=== PATIENT | female | born 1940 | race Caucasian/White ===

== ENCOUNTER 2017-04-30 13:49 | Emergency (ER) | payer MEDICARE, OTHER ==
[~2017-04-30] VITALS: Ht 157.5 cm; Wt 69.7 kg
[~2017-04-30 13:49] MED LIST: CARV12.579 PO; CHOL200035 PO; CIPR500T4 PO; CLOP75TA27 PO; CYAN100061 PO; EZET1TAB10 PO; OXYB5TAB22 PO; SERT50TA6 PO; SPIR25TA PO
[2017-04-30 14:04] VITALS: Ht 157.5 cm; Wt 69.7 kg
== END 2017-04-30 16:30 | disposition left against medical advice (07) ==
LOC: E/R 13:49 → MERGE 13:49 → E/R 16:30
DX: Z53.21 Procedure and treatment not carried out due to patient leaving prior to being seen by health care provider (principal)

== ENCOUNTER 2017-10-16 15:03 | Inpatient (IN) | END 2017-10-18 18:13 | disposition home or self-care (01) | DRG 378 ==

== ENCOUNTER 2018-10-21 10:56 | Inpatient (IN) | payer BC, OTHER ==
[~2018-10-21] VITALS: Ht 154.9 cm; Wt 75.4 kg
[~2018-10-21 10:56] MED LIST changes: -CHOL200035 PO; -CIPR500T4 PO; -CLOP75TA27 PO; +DOCU-216 PO; +PANT40TA4 PO
[2018-10-21] MEDS ORDERED: SOD CHLORIDE 0.9% 0 ML IV ONE (12:34)
[2018-10-21] MEDS ORDERED: FER325 PO (13:39)
[2018-10-21] MEDS ORDERED: MIRA25TA PO (13:39)
[2018-10-21] MEDS ORDERED: MIRA50TA ORAL (13:41)
[2018-10-21] MEDS ORDERED: CLOP75TA28 ORAL (13:41)
--- NOTE | 2018-10-21 14:29 | ERD ---
ER Documentation Chief Complaint Chief Complaint chest pain since this morning. mild sob and feels chest tightness. no N/V HPI This is a 78-year-old female with a past medical history of hypertension, hyperlipidemia, coronary artery disease status post stenting and CABG, congestive heart failure, previous CVA, on Plavix, who is presenting with mild mid substernal nonradiating pressure-like chest pain and tightness with associated shortness of breath, dyspnea on exertion, lightheadedness/dizziness and a sensation that she might pass out. It started this morning. She does not endorse alleviating or exacerbating factors. The patient does report previous episodes of anemia requiring transfusion. She is told that she had a polyp on her most recent endoscopy. The patient denies feeling sick recently. The patient denies fever or chills. The patient has had no headache or vision changes. The patient does not endorse neck or back pain. The patient denies nausea or vomiting. The patient denies abdominal pain. The patient denies changes to bowel movements or urination. The patient has had no focal deficits. The patient has had no weakness or numbness or tingling to the face or extremities. ROS All systems reviewed and are negative except as per history of present illness. Medications Home Meds Reported Medications Mirabegron (Myrbetriq) 50 Mg Tab.er.24h, 1 TAB ORAL DAILY 10/21/18 Clopidogrel Bisulfate (Clopidogrel) 75 Mg Tablet, 1 TAB ORAL DAILY 10/21/18 Ferrous Sulfate* (Ferrous Sulfate*) 325 Mg Tabec, 325 MG PO DAILY, TAB 10/21/18 Spironolactone* (Aldactone*) 25 Mg Tablet, 25 MG PO DAILY, TAB 01/21/15 Cyanocobalamin* (Vitamin B-12* SL) 1,000 Mcg Tab.subl, 1000 MG PO DAILY 12/03/12 Ezetimibe-Simvastatin (Vytorin) 1 Tab Tablet, 1 TAB PO HS 12/03/12 Sertraline Hcl* (Sertraline Hcl*) 50 Mg Tablet, 50 TAB PO DAILY 12/03/12 Carvedilol* (Carvedilol*) 12.5 Mg Tablet, 12.5 TAB PO BID 12/03/12 Discontinued Reported Medications Mirabegron (Mybetriq) 25 Mg Tab.er.24h, 50 MG PO DAILY, TAB 10/21/18 Oxybutynin Chloride* (Ditropan* XL) 5 Mg Tabsr, 5 MG PO DAILY, TAB.SA 01/21/15 Discontinued Scripts Pantoprazole* (Pantoprazole*) 40 Mg Tablet.dr, 40 MG PO BID@18 for 30 Days, #30 2 Refills Prov:MARILEE LAWSON MD 10/18/17 Docusate Sodium (Dok) 100 Mg Capsule, 100 MG PO BID PRN for CONSTIPATION for 1 Day, CAP otc Prov:MARILEE LAWSON MD 10/18/17 Allergies Allergies: Coded Allergies: sulfamethoxazole (Verified Allergy, Intermediate, RASH/ ITCHING, 10/21/18) trimethoprim (Verified Allergy, Intermediate, RASH/ ITCHING, 10/21/18) pseudoephedrine (Verified Allergy, Mild, 10/21/18) PMhx/Soc History of Surgery: Yes (triple bypass and 3 stents 7 yrs ago ) Anesthesia Reaction: No Hx Neurological Disorder: Yes (mini stroke 7 yrs ago ) Hx Respiratory Disorders: No Hx Cardiac Disorders: Yes (CABG) Hx Psychiatric Problems: No Hx Miscellaneous Medical Probl: No Hx Alcohol Use: No Hx Substance Use: No Hx Tobacco Use: No Smoking Status: Never smoker FmHx Family History: No diabetes Physical Exam Vitals Vital Signs Date Temp Pulse Resp B/P (MAP) Pulse Ox O2 O2 Flow FiO2 Time Delivery Rate 10/21/18 97.5 61 21 121/52 100 Nasal 2.0 12:47 (75) Cannula 10/21/18 Nasal 2 11:33 Cannula 10/21/18 98.0 66 18 126/58 98 11:09 (80) Physical Exam Const: No apparent distress, well-developed, well-nourished Head: Normocephalic, Atraumatic Eyes: Conjunctival pallor. Extraocular movements intact. Pupils equal, round and reactive to light ENT: Normal External Ears, Nose and Mouth. Neck: Full range of motion. No meningismus. Resp: Clear to auscultation bilaterally, No wheezes, rales or rhonchi Cardio: Regular rate and rhythm. No murmurs, rubs or gallops Abd: Soft, non tender, non distended. Normal bowel sounds Skin: No petechiae or rashes. Pale Back: No midline tenderness. No CVA tenderness Ext: No cyanosis, or edema Neur: Awake and alert, oriented 4. Cranial nerves intact. No facial droop. Normal strength, sensation and coordination. Psych: Normal Mood and Affect Result Diagram: 10/21/18 1123 10/21/18 1123 Results 24 hrs Laboratory Tests Test 10/21/18 11:23 White Blood Count 7.3 10^3/ul Red Blood Count 2.02 10^6/ul Hemoglobin 6.4 g/dl Hematocrit 20.9 % Mean Corpuscular Volume 103.5 fl Mean Corpuscular Hemoglobin 31.7 pg Mean Corpuscular Hemoglobin Concent 30.6 g/dl Red Cell Distribution Width 17.6 % Platelet Count 200 10^3/UL Mean Platelet Volume 9.9 fl Immature Granulocytes % 0.400 % Neutrophils % 55.1 % Segmented Neutrophils % (Manual) 51 % Band Neutrophils % (Manual) 3 % Lymphocytes % 31.3 % Lymphocytes % (Manual) 37 % Monocytes % 8.4 % Monocytes % (Manual) 2 % Eosinophils % 4.0 % Eosinophils % (Manual) 4 % Basophils % 0.8 % Basophils % (Manual) 2 % Myelocytes % (Manual) 1 % Nucleated Red Blood Cells % 0.5 /100WBC Immature Granulocytes # 0.030 10^3/ul Neutrophils # 4.0 10^3/ul Neutrophils # (Manual) 3.7 10^3/ul Band Neutrophils # 0.2 10^3/ul Lymphocytes (Manual) 2.7 10^3/ul Lymphocytes # 2.3 10^3/ul Monocytes # 0.6 10^3/ul Monocytes # (Manual) 0.1 10^3/ul Eosinophils # 0.3 10^3/ul Basophils # 0.1 10^3/ul Basophils # (Manual) 0.1 10^3/ul Myelocytes # 0.0 10^3/ul Nucleated Red Blood Cells # 0.0 10^3/ul Pathologist Review (Hematology) YES Platelet Estimate NORMAL Polychromasia 1+ Poikilocytosis 1+ Anisocytosis 1+ Ovalocytes 1+ Prothrombin Time 13.7 Sec Prothrombin Time Ratio 1.1 INR International Normalized Ratio 1.04 Sodium Level 141 mmol/L Potassium Level 4.1 mmol/L Chloride Level 111 mmol/L Carbon Dioxide Level 23 mmol/L Anion Gap 7 Blood Urea Nitrogen 18 mg/dl Creatinine 0.85 mg/dl Est Glomerular Filtrat Rate mL/min mL/min Glucose Level 104 mg/dl Calcium Level 8.1 mg/dl Troponin I < 0.012 ng/ml B-Type Natriuretic Peptide 707 PG/ML Current Medications Medications Dose Sig/Mickey Start Time Status Last (Trade) Ordered Route PRN Stop Time Admin Dose Reason Admin Sodium 0 ml @ 0 Q0M ONCE 10/21/18 DC 10/21/18 Chloride mls/hr IV 12:34 10/21/18 13:55 12:35 Procedures/MDM MDM The patient's presentation warrants further investigation. Previous medical records, if available, were reviewed. LABS The patient's laboratory testing was obtained and reviewed. No emergent treatment was required unless described below. CBC: No E/o systemic infection or thrombocytopenia. Macrocytic anemia requiring transfusion. Chemistry: No E/o severe acidosis or alkalosis or renal failure or diabetic ketoacidosis PT/INR: No E/o significant coagulopathy Troponin: No E/o acute ischemia BNP: No E/o heart failure EKG EKG read by me: Rate/Rhythm: Irregularly irregular rhythm, regular rate at 61 bpm, indicating atrial fibrillation Intervals: Normal QRS and QTc. No obvious P waves. [place]: Normal Impression: No evidence of acute ischemia. Atrial fibrillation IMAGING Imaging and Radiology interpretation reviewed. CXR FINDINGS: The heart is within normal limits. The thoracic aorta is calcified. The patient is status post sternotomy. The lungs are clear. There is no pleural effusion or pneumothorax. IMPRESSION: No acute disease. Calcified aorta consistent with atherosclerotic disease. Electronically viewed and signed by .Alberto Hernandez MD, MD on 10/21/2018 11:39 TREATMENT/DISPOSITION The patient presents after a near-syncopal event. The patient's symptoms are likely related to symptomatic anemia. The risks and benefits of blood transfusion were discussed with the patient and the patient consented. 1 unit of packed red blood cells was provided to the patient. The patient does have congestive heart failure. Why do not suspect an acute exacerbation, I did give the patient a dose of Lasix in the emergency department as he is about to be bolused with fluid from the blood transfusion. The patient is not dizzy. I have decreased suspicion for vertigo. The patient has no signs of emergent or symptomatic anemia. The patient does not have any emergent electrolyte or metabolic emergencies. I have decrease suspicion for a thyroid disorder. The patient is not toxic appearing. I have decreased suspicion for an infectious etiology of symptoms. The patient's EKG and troponin are reassuring. I have low suspicion for acute coronary syndrome. I do not see evidence of any emergent cardiac arrhythmia, which includes but is not limited to heart block, Brugada syndrome or WPW. The patient has no heart murmurs or rales. There is no evidence of cardiomegaly on exam or chest xray. I have low suspicion for hypertrophic cardiomyopathy. The patient does not endorse any chest or pleuritic pain. The history is negative for bleeding or clotting disorders. The patient has not been involved in any recent prolonged trips or surgeries or hospitalizations. The patient has no calf tenderness or swelling. I have decreased suspicion for PE as the etiology of symptoms. The patient has no focal deficits. The neurologic exam is reassuring. I have decreased suspicion for cerebral ischemia. There was no trauma or injury. There is no personal or family history of cerebral aneurysm. I have decreased suspicion for SAH or other ICH. I have low suspicion for temporal arteritis, cavernous venous thrombosis, subdural hematoma, epidural hematoma, meningitis. ADMISSION At this time, I feel that the patient requires admission for further evaluation and management. The patient will be admitted to panel in accordance with the patient's insurance. The patient was accepted by Dr. Navarro at 1415PM on 10/21/2018. Disclaimer: Inadvertent spelling and grammatical errors are likely due to EHR/dictation software use and do not reflect on the overall quality of patient care. Note that the electronic time recorded on this note does not necessarily reflect the actual time of the patient encounter. Departure Diagnosis: Primary Impression: Symptomatic anemia Additional Impressions: Macrocytic anemia Near syncope Chronic CHF Heart failure type: unspecified Qualified Codes: I50.9 - Heart failure, unspecified Elevated brain natriuretic peptide (BNP) level Condition: Serious MARCOS FLOWERS MD October 21, 2018 14:28
[2018-10-21] MEDS ORDERED: ONDANSETRON 4 MG INJ IV PRN ×2 (14:30→15:30)
[2018-10-21] MEDS ORDERED: ACETAMINOPHEN 325 MG TAB PO PRN ×2 (14:30→15:30)
[2018-10-21] MEDS ORDERED: FUROSEMIDE 40 MG INJ IV ONE (14:30)
[2018-10-21] MEDS: D5W-0.45 NACL + KCL 20 MEQ 1,000 ML IV SCH (15:07)
[2018-10-21] MEDS ORDERED: NACL 0.9% 3 ML SYG IV SCH (15:30)
[2018-10-21] MEDS ORDERED: morphine 2 MG INJ IV PRN (15:30)
[2018-10-21] MEDS ORDERED: HYDROCODONE/APAP (5/325) TAB PO PRN (15:30)
--- NOTE | 2018-10-21 15:56 | HP ---
Date/Time of Note Date/Time of Note DATE: 10/21/18 TIME: 15:41 Assessment/Plan VTE Prophylaxis SCD applied (from Nsg): Yes Pharmacological prophylaxis: NA/contraindicated Pharm contraindication: bleeding Lines/Catheters IV Catheter Type (from Nrsg): Saline Lock Assessment/Plan Hospital Course 1. Acute blood loss anemia secondary to GI bleed Patient is symptomatic with palpitations and lightheadedness Transfuse 2 units of packed red blood cells Patient denies zay blood per rectum but does report dark stool although is on iron Recent EGD showed gastritis, colonoscopy showed moderate external hemorrhoids and diverticulosis, video capsule study done as an outpatient was reportedly negative Pathology from EGD showed no H. pylori Reconsult Dr. Barron who saw patient during last hospitalization 2. CAD Hold home ASA and Plavix 3. Hx of CVA Hold Rx PPx: SCD's Result Diagram: 10/21/18 1123 10/21/18 1123 Results 24hrs Laboratory Tests Test 10/21/18 11:23 White Blood Count 7.3 Red Blood Count 2.02 #L Hemoglobin 6.4 #*L Hematocrit 20.9 #L Mean Corpuscular Volume 103.5 H Mean Corpuscular Hemoglobin 31.7 Mean Corpuscular Hemoglobin Concent 30.6 L Red Cell Distribution Width 17.6 H Platelet Count 200 Mean Platelet Volume 9.9 Immature Granulocytes % 0.400 Neutrophils % 55.1 Segmented Neutrophils % (Manual) 51 Band Neutrophils % (Manual) 3 Lymphocytes % 31.3 Lymphocytes % (Manual) 37 Monocytes % 8.4 Monocytes % (Manual) 2 Eosinophils % 4.0 Eosinophils % (Manual) 4 Basophils % 0.8 Basophils % (Manual) 2 Myelocytes % (Manual) 1 H Nucleated Red Blood Cells % 0.5 H Immature Granulocytes # 0.030 Neutrophils # 4.0 Neutrophils # (Manual) 3.7 Band Neutrophils # 0.2 Lymphocytes (Manual) 2.7 Lymphocytes # 2.3 Monocytes # 0.6 Monocytes # (Manual) 0.1 L Eosinophils # 0.3 Basophils # 0.1 Basophils # (Manual) 0.1 H Myelocytes # 0.0 Nucleated Red Blood Cells # 0.0 Pathologist Review (Hematology) YES Platelet Estimate NORMAL Polychromasia 1+ Poikilocytosis 1+ Anisocytosis 1+ Ovalocytes 1+ Prothrombin Time 13.7 Prothrombin Time Ratio 1.1 INR International Normalized Ratio 1.04 Sodium Level 141 Potassium Level 4.1 Chloride Level 111 H Carbon Dioxide Level 23 Anion Gap 7 Blood Urea Nitrogen 18 Creatinine 0.85 Est Glomerular Filtrat Rate mL/min Glucose Level 104 Calcium Level 8.1 L Troponin I < 0.012 B-Type Natriuretic Peptide 707 H HPI/ROS Admit Date/Time Admit Date/Time October 21, 2018 Hx of Present Illness Patient is a 78-year-old female with a history of CAD, depression, chronic CVA per imaging as well as GI bleed with recent hospitalization for anemia. During recent hospitalization patient was transfused, patient was found to have gastritis as well as hemorrhoids and diverticulosis. Patient reports that since discharge she had a video capsule study that was negative. Patient presents now with palpitations and lightheadedness for the past several days. In the ER patient was noted to be anemic with hemoglobin of 6.4. Patient does report dark stools but is on iron therapy, patient denies any zay blood per rectum. Patient has no other complaints this time. ROS Constitutional: no complaints, improved Eyes: no complaints ENT: no complaints Respiratory: no complaints Cardiovascular: lightheadedness, palpitations Gastrointestinal: no complaints Genitourinary: no complaints Musculoskeletal: no complaints Skin: no complaints Neurologic: no complaints Endocrine: no complaints Lymphatic: no complaints Psychological: no complaints, nl mood/affect Immunologic: no complaints PMH/Family/Social Past Medical History As per HPI Medications Current Medications Potassium Chloride/Dextrose/ Sod Cl 1,000 ml @ 100 mls/hr Q10H IV ; Start 10/21/18 at 15:07 IV Flush (NS 3 ml) 3 ml PER PROTOCOL IV ; Start 10/21/18 at 15:30 Ondansetron HCl (Zofran Inj) 4 mg Q6H PRN IV NAUSEA/VOMITING; Start 10/21/18 at 15:30 Acetaminophen (Tylenol Tab) 650 mg Q6H PRN PO .PAIN 1-3 OR TEMP; Start 10/21/18 at 15:30 Acetaminophen/ Hydrocodone Bitart ([place] (5/325)) 1 tab Q6H PRN PO .MOD PAIN 4- 6; Start 10/21/18 at 15:30 Morphine Sulfate (morphine) 2 mg Q4H PRN IV .SEVERE PAIN 7-10; Start 10/21/18 at 15:30 Pantoprazole (Protonix Iv) 40 mg DAILY@06 IV ; Start 10/22/18 at 06:00 Sertraline HCl (Zoloft) 50 mg DAILY PO ; Start 10/22/18 at 09:00 Spironolactone (Aldactone) 25 mg DAILY PO ; Start 10/22/18 at 09:00 Coded Allergies: sulfamethoxazole (Verified Allergy, Intermediate, RASH/ ITCHING, 10/21/18) trimethoprim (Verified Allergy, Intermediate, RASH/ ITCHING, 10/21/18) pseudoephedrine (Verified Allergy, Mild, 10/21/18) Past Surgical History Past Surgical Hx: coronary bypass surgery Family History Significant Family History: no pertinent family hx Social History Alcohol Use: rarely Smoking Status: Never smoker Drug Use: none Exam/Review of Systems Vital Signs Vitals Vital Signs Date Temp Pulse Resp B/P (MAP) Pulse Ox O2 O2 Flow FiO2 Time Delivery Rate 10/21/18 97.5 61 21 121/52 100 Nasal 2.0 12:47 (75) Cannula Exam Constitutional: alert, oriented Respiratory: clear to auscultation Cardiovascular: regular rate and rhythm Gastrointestinal: soft, non-tender; No distended Musculoskeletal: nl extremities to inspection CHELSEA PLUMMER October 21, 2018 15:51
[2018-10-21 19:49] VITALS: BP 180/73; PULSE 55; RESP 18
[2018-10-21 20:00] VITALS: PULSE 62
[2018-10-21 20:05] VITALS: Ht 154.9 cm; Wt 75.4 kg
[2018-10-21 21:34] VITALS: BP 152/68; PULSE 56
[2018-10-22] VITALS (8 sets, daily range): BP systolic 112–149; BP diastolic 53–65; PULSE 55–96; RESP 16–18
[2018-10-22] MEDS: D5W-0.45 NACL + KCL 20 MEQ 1,000 ML IV SCH ×2 (01:07→08:49)
[2018-10-22] MEDS ORDERED: PANTOPRAZOLE 40 MG INJ IV SCH (06:00)
[2018-10-22] MEDS ORDERED: SERTRALINE 50 MG TAB PO SCH (09:00)
[2018-10-22] MEDS ORDERED: SPIRONOLACTONE 25 MG TAB PO SCH (09:00)
[2018-10-22] MEDS ORDERED: SOD FERRIC GLUC COMPLX 125 MG in SOD CHLORIDE 0.9% 100 ML IVPB SCH (13:00)
--- NOTE | 2018-10-22 14:20 | PDOCDIS ---
Discharge Instructions CONDITION [id number] Patient Condition: [id number] Good HOME CARE INSTRUCTIONS: [id number] Diet Instructions: [id number] Modified Fat ACTIVITY: [id number] Activity Restrictions: [id number] No Restrictions FOLLOW UP/APPOINTMENTS Follow-up Plan Follow-up with PCP and mobile application engineer in 1 to 2 weeks CHELSEA PLUMMER October 22, 2018 14:20
--- NOTE | 2018-10-22 16:16 | DS ---
Date/Time of Note Date/Time of Note DATE: 10/22/18 TIME: 16:07 Discharge Summary Admission/Discharge Info Admit Date/Time October 21, 2018 at 14:19 Discharge Date/Time October 22, 2018 at 15:33 Discharge Diagnosis 1. Acute blood loss anemia secondary to GI bleed Patient is symptomatic with palpitations and lightheadedness Status post 2 units of packed red blood cells with improved hemoglobin Patient denies zay blood per rectum but does report dark stool although is on iron Recent EGD showed gastritis, colonoscopy showed moderate external hemorrhoids and diverticulosis, video capsule study done as an outpatient was reportedly negative Pathology from EGD showed no H. pylori Follow-up with GI as outpatient Have discussed risks and benefits of continuing Plavix, considering history of strokes and coronary disease benefits appear to outweigh risk 2. CAD Hold home Plavix and statin 3. Hx of CVA Continue Plavix and statin Patient Condition: Good Hospital Course Patient is a 78-year-old female with a history of CAD, depression, chronic CVA per imaging as well as GI bleed with recent hospitalization for anemia. During recent hospitalization patient was transfused, patient had an EGD and colonoscopy and was found to have gastritis as well as hemorrhoids and diverticulosis. Patient had recent outpatient video capsule study that was negative. Patient presented with palpitations and lightheadedness, in the ER patient was noted to be anemic with hemoglobin of 6.4. Patient does report dark stools but has been on iron therapy, patient denied any zay blood per rectum. Etiology of anemia is likely secondary to chronic bleed from hemorrhoids, there was no indication for further GI work-up considering recent endoscopies and video capsule study. Patient's palpitations and lightheadedness did resolve after receiving 2 units of packed red blood cells and patient was stable for DC. Discussion was had in regards to continuing Plavix, considering patient's history of coronary disease and strokes it was decided that benefits of continuing Plavix outweigh risks. Patient is to follow-up with her diagrammer as an outpatient, on the day of discharge patient's vitals, labs and physical exam are stable. Home Meds Reported Medications Mirabegron (Myrbetriq) 50 Mg Tab.er.24h, 1 TAB ORAL DAILY 10/21/18 Clopidogrel Bisulfate (Clopidogrel) 75 Mg Tablet, 1 TAB ORAL DAILY 10/21/18 Ferrous Sulfate* (Ferrous Sulfate*) 325 Mg Tabec, 325 MG PO DAILY, TAB 10/21/18 Spironolactone* (Aldactone*) 25 Mg Tablet, 25 MG PO DAILY, TAB 01/21/15 Cyanocobalamin* (Vitamin B-12* SL) 1,000 Mcg Tab.subl, 1000 MG PO DAILY 12/03/12 Ezetimibe-Simvastatin (Vytorin) 1 Tab Tablet, 1 TAB PO HS 12/03/12 Sertraline Hcl* (Sertraline Hcl*) 50 Mg Tablet, 50 TAB PO DAILY 12/03/12 Carvedilol* (Carvedilol*) 12.5 Mg Tablet, 12.5 TAB PO BID 12/03/12 Discontinued Reported Medications Mirabegron (Mybetriq) 25 Mg Tab.er.24h, 50 MG PO DAILY, TAB 10/21/18 Oxybutynin Chloride* (Ditropan* XL) 5 Mg Tabsr, 5 MG PO DAILY, TAB.SA 01/21/15 Discontinued Scripts Pantoprazole* (Pantoprazole*) 40 Mg Tablet.dr, 40 MG PO BID@, for 30 Days, #30 2 Refills Prov:MARILEE LAWSON MD 10/18/17 Docusate Sodium (Dok) 100 Mg Capsule, 100 MG PO BID PRN for CONSTIPATION for 1 Day, CAP otc Prov:MARILEE LAWSON MD 10/18/17 Follow-up Plan Follow-up with PCP and diagrammer in 1 to 2 weeks Primary Care Provider Not On Staff Doctor Time spent on discharge: > 30 minutes CHELSEA PLUMMER October 22, 2018 16:16
[2018-10-23] MEDS ORDERED: PANTOPRAZOLE (EC) 40 MG TAB PO SCH (06:00)
== END 2018-10-22 15:33 | disposition home or self-care (01) | DRG 812 ==
LOC: E/R 10:56 → MS3 14:19
PROVIDERS: ADMIT Internal Medicine; ATTEND Internal Medicine
PROC: 30233N1 Transfusion of Nonautologous Red Blood Cells into Peripheral Vein, Percutaneous Approach (ICD-10-PCS; principal; 2018-10-21)
DX: D62 Acute posthemorrhagic anemia (principal); R07.9 Chest pain, unspecified; Z95.1 Presence of aortocoronary bypass graft; Z86.73 Personal history of transient ischemic attack (TIA), and cerebral infarction without residual deficits; Z79.02 Long term (current) use of antithrombotics/antiplatelets; Z95.5 Presence of coronary angioplasty implant and graft; K29.70 Gastritis, unspecified, without bleeding; R19.5 Other fecal abnormalities; I50.9 Heart failure, unspecified
CPT/HCPCS: 36415; 36430; 71045; 80048; 82550; 82553; 83735; 83880; 84100; 84484; 85025; 85610; 86850; 86900; 86901; 86920; 93005; C9113; J1940; J2916; J3480; J7040; P9016

== ENCOUNTER 2018-12-15 21:16 | Inpatient (IN) | payer BC, OTHER ==
[~2018-12-15] VITALS: Ht 152.4 cm; Wt 73.6 kg
[~2018-12-15 21:16] MED LIST changes: +CLOP75TA28 ORAL; -DOCU-216 PO; +FER325 PO; +MIRA50TA ORAL; -OXYB5TAB22 PO; -PANT40TA4 PO
[2018-12-15 21:19] VITALS: Ht 152.4 cm; Wt 73.6 kg
[2018-12-15] MEDS ORDERED: METOCLOPRAMIDE 10 MG INJ IV STA (22:07)
[2018-12-15] MEDS ORDERED: SOD CHLORIDE 0.9% 1,000 ML IV STA (22:07)
[2018-12-15] MEDS ORDERED: SOD CHLORIDE 0.9% 0 ML IV ONE (23:42)
[2018-12-16] MEDS ORDERED: CEFTRIAXONE 1 GM/50 ML (PMX) 50 ML IVPB ONE (00:30)
[2018-12-16] MEDS ORDERED: ONDANSETRON 4 MG INJ IV PRN ×2 (00:30→06:30)
[2018-12-16] MEDS ORDERED: ACETAMINOPHEN 325 MG TAB PO PRN ×2 (00:30→06:30)
--- NOTE | 2018-12-16 00:34 | ERD ---
ER Documentation Chief Complaint Chief Complaint BIBRA from home, dizziness,vomiting an hour ago,constipation,denies pain HPI 78-year-old female with a history of CAD, CABG, stroke, and anemia presenting by ambulance from home complaining of dizziness that seems to be room spinning with associated nausea and vomiting that started about 1 hour ago. She states that she has been feeling generally weak. She thought that this was because of her medications. She went and saw her primary care doctor as well as her typist today. She had stopped her Plavix because she thought that this was causing her problems, but she was told to restart it which she did today at home. She denies any hematemesis, melena, hematochezia, abdominal pain, dysuria or hematuria. No chest pain or shortness of breath. No focal weakness or num bness. She states that she does have a history of vertigo and this is what her symptoms feel like. Her symptoms are worse with movement. She denies any associated headache. ROS All systems reviewed and are negative except as per history of present illness. Medications Home Meds Reported Medications Mirabegron (Myrbetriq) 50 Mg Tab.er.24h, 1 TAB ORAL DAILY 10/21/18 Clopidogrel Bisulfate (Clopidogrel) 75 Mg Tablet, 1 TAB ORAL DAILY 10/21/18 Ferrous Sulfate* (Ferrous Sulfate*) 325 Mg Tabec, 325 MG PO DAILY, TAB 10/21/18 Spironolactone* (Aldactone*) 25 Mg Tablet, 25 MG PO DAILY, TAB 01/21/15 Cyanocobalamin* (Vitamin B-12* SL) 1,000 Mcg Tab.subl, 1000 MG PO DAILY 12/03/12 Ezetimibe-Simvastatin (Vytorin) 1 Tab Tablet, 1 TAB PO HS 12/03/12 Sertraline Hcl* (Sertraline Hcl*) 50 Mg Tablet, 50 TAB PO DAILY 12/03/12 Carvedilol* (Carvedilol*) 12.5 Mg Tablet, 12.5 TAB PO BID 12/03/12 Allergies Allergies: Coded Allergies: sulfamethoxazole (Verified Allergy, Intermediate, RASH/ ITCHING, 10/21/18) trimethoprim (Verified Allergy, Intermediate, RASH/ ITCHING, 10/21/18) pseudoephedrine (Verified Allergy, Mild, 10/21/18) PMhx/Soc History of Surgery: Yes (BYPASS, STENT PLACEMENT X 3) Anesthesia Reaction: No Hx Neurological Disorder: No Hx Respiratory Disorders: No Hx Cardiac Disorders: Yes (HTN) Hx Psychiatric Problems: No Hx Miscellaneous Medical Probl: Yes (ARTHRITIS ) Hx Alcohol Use: No Hx Substance Use: No Hx Tobacco Use: No Smoking Status: Never smoker FmHx Family History: diabetes Physical Exam Vitals Vital Signs Date Temp Pulse Resp B/P (MAP) Pulse Ox O2 O2 Flow FiO2 Time Delivery Rate 12/15/18 97.2 67 20 133/54 97 Room Air 22:19 (80) 12/15/18 97.8 88 19 151/62 99 21:19 (91) Physical Exam Const: Appears to be in distress secondary to nausea, actively retching Head: Atraumatic Eyes: Normal Conjunctiva, PERRLA, EOMI. Horizontal nystagmus to the right. No vertical nystagmus ENT: Dry oral mucosa. Normal External Ears, Nose and Mouth. Neck: Full range of motion. No meningismus. Resp: Clear to auscultation bilaterally Cardio: Regular rate and rhythm, no murmurs 2+ distal pulses Abd: Soft, non tender, non distended. Normal bowel sounds Skin: No petechiae or rashes Back: No midline or flank tenderness Ext: No cyanosis, or edema Neur: Awake and alert, oriented x3, cranial nerves intact, strength and sensations intact in all 4 extremities. Psych: Normal Mood and Affect Result Diagram: 12/15/18213912/15/182139 Results 24 hrs Laboratory Tests Test 12/15/18 21:40 12/15/18 23:42 White Blood Count 11.9 10^3/ul Red Blood Count 2.46 10^6/ul Hemoglobin 6.7 g/dl Hematocrit 21.4 % Mean Corpuscular Volume 87.0 fl Mean Corpuscular Hemoglobin 27.2 pg Mean Corpuscular Hemoglobin Concent 31.3 g/dl Red Cell Distribution Width 15.3 % Platelet Count 363 10^3/UL Mean Platelet Volume 10.2 fl Immature Granulocytes % 0.400 % Neutrophils % 68.7 % Lymphocytes % 20.7 % Monocytes % 5.5 % Eosinophils % 3.7 % Basophils % 1.0 % Nucleated Red Blood Cells % 0.0 /100WBC Immature Granulocytes # 0.050 10^3/ul Neutrophils # 8.2 10^3/ul Lymphocytes # 2.5 10^3/ul Monocytes # 0.7 10^3/ul Eosinophils # 0.4 10^3/ul Basophils # 0.1 10^3/ul Nucleated Red Blood Cells # 0.0 10^3/ul Pathologist Review (Hematology) YES Prothrombin Time 13.4 Sec Prothrombin Time Ratio 1.0 INR International Normalized Ratio 1.01 Activated Partial Thromboplast Time 25.0 Sec Sodium Level 141 mmol/L Potassium Level 4.1 mmol/L Chloride Level 108 mmol/L Carbon Dioxide Level 22 mmol/L Anion Gap 11 Blood Urea Nitrogen 27 mg/dl Creatinine 1.16 mg/dl Est Glomerular Filtrat Rate mL/min mL/min Glucose Level 159 mg/dl Calcium Level 9.1 mg/dl Troponin I < 0.012 ng/ml Urine Color YELLOW Urine Clarity SLIGHTLY CLOUDY Urine pH 6.0 Urine Specific [place] 1.011 Urine Ketones NEGATIVE mg/dL Urine Nitrite POSITIVE mg/dL Urine Bilirubin NEGATIVE mg/dL Urine Urobilinogen NEGATIVE mg/dL Urine Leukocyte Esterase 2+ Marciano/ul Urine Microscopic RBC 2 /HPF Urine Microscopic WBC 12 /HPF Urine Amorphous Crystals FEW /HPF Urine Bacteria MANY /HPF Urine Hemoglobin 1+ mg/dL Urine Glucose NEGATIVE mg/dL Urine Total Protein NEGATIVE mg/dl Current Medications Medications Dose Sig/Mickey Start Time Status Last (Trade) Ordered Route PRN Stop Time Admin Dose Reason Admin Sodium 1,000 ml @ Q1H STAT 12/15/18 DC 12/15/18 Chloride 1,000 mls/hr IV 22:07 12/15/18 22:18 23:06 10 mg ONCE STAT 12/15/18 DC 12/15/18 Metoclopramid IV 22:07 12/15/18 22:18 e HCl 22:09 (Reglan) Sodium 0 ml @ 0 Q0M ONCE 12/15/18 DC Chloride mls/hr IV 23:42 12/15/18 23:43 Ceftriaxone 50 ml @ ONCE ONCE 12/16/18 Sodium 100 mls/hr IVPB 00:30 12/16/18 00:59 Ondansetron 4 mg BRIDGE ORDER 12/16/18 HCl (Zofran PRN IV 00:30 12/17/18 Inj) NAUSEA/VOMITI 00:29 NG 650 mg ER BRIDGE 12/16/18 Acetaminophen PRN PO 00:30 12/17/18 (Tylenol .MILD PAIN 00:29 Tab) 1-3 OR TEMP Procedures/MDM EMERGENT LABS AND DIAGNOSTIC STUDIES: Lab Results above were reviewed and interpreted by me. CBC: Anemia with hemoglobin 6.7. No evidence of infection BMP: Elevated BUN and creatinine, consistent with acute renal insufficiency, likely secondary to dehydration. No evidence of clinically significant electrolyte abnormality, acidosis, or hypoglycemia Troponin within normal limits, not indicative of cardiac ischemia UA: + evidence of infection 12-lead EKG was interpreted by Mike Tracy MD: Sinus rhythm with first-degree AV block at 63 bpm LVH with anterior Q waves Normal axis No acute ST or T wave changes suggestive of acute ischemia or STEMI. Radiology Results as interpreted by Radiology below were reviewed by Leigh Ann Tracy MD: Chest x-ray shows no acute abnormalities CT head shows no acute abnormalities Initial Nursing notes reviewed. Previous Medical Records requested via the Electronic Health Record. EMERGENCY DEPARTMENT COURSE / MEDICAL DECISION MAKING: Patient is presenting with vertigo, generalized weakness with nausea and vomiting. Vitals are unremarkable. Labs were notable for anemia for which 2 units of PRBCs were ordered. Patient did have a bowel movement here without blood or melena. Labs are notable for acute renal insufficiency likely due to dehydration. She was given IV fluids with improvement of her symptoms. She was also given Reglan for her symptoms with improvement of her nausea and dizziness. She was noted to have a UTI for which antibiotics were given. There is no evidence of severe se psis or septic shock at this time. Patient is not stable for discharge and will require further observation and stabilization. Critical Care Management of Hemorrhage and Symptomatic Anemia: Time: 35 minutes Treatments/Evaluations: Close monitoring and management of bleeding sources while maintaining tight balance of fluid. With judicious assessment of anemia, coagulopathy and thrombocytopenia, while considering correction with blood products and medical therapy. Accepting Care Team: Current data and ongoing care discussed. Time: Time of admission Primary Provider: Dr. Yuen Departure Diagnosis: Primary Impression: UTI (urinary tract infection) Urinary tract infection type: acute cystitis Hematuria presence: without hematuria Qualified Codes: N30.00 - Acute cystitis without hematuria Additional Impressions: Symptomatic anemia Acute renal insufficiency Vertigo Nausea and vomiting Vomiting type: unspecified Vomiting Intractability: non-intractable Qualified Codes: R11.2 - Nausea with vomiting, unspecified Condition: ATILIO Johnson MD Dec 16, 2018 00:34
[2018-12-16 03:00] VITALS: BP 139/65; PULSE 66; RESP 17
[2018-12-16] MEDS ORDERED: OMEP20CA16 PO (03:41)
[2018-12-16] MEDS ORDERED: FLUT16SP17 NASAL (03:41)
[2018-12-16] MEDS ORDERED: ALBUTEROL HFA 8 GM INHALER INH PRN (06:30)
[2018-12-16] MEDS ORDERED: NACL 0.9% 3 ML SYG IV SCH (06:30)
--- NOTE | 2018-12-16 06:32 | HP ---
Date/Time of Note Date/Time of Note DATE: 12/16/18 TIME: 06:28 Assessment/Plan VTE Prophylaxis Risk score (from Ns)>0 risk: 4 SCD applied (from [facility] [place]): Yes Pharmacological prophylaxis: heparin Lines/Catheters IV Catheter Type (from [facility]): Peripheral IV Assessment/Plan Assessment/Plan 1. Anemia: Suspect from GI bleed -Patient was admitted here couple months ago and at that time EGD/colonoscopy shows a gastritis and hemorrhoid -Will be placed on PPI -FOBT -GI consult -Transfuse PRBCs 2. CAD with a history of CABG: Hold Plavix for now. Cardiology consult to see if Plavix can be stopped and patient can only be placed on low-dose aspirin 3. History of CVA: Again hold Plavix for now 4. Acute renal insufficiency: Transfuse PRBCs. Will hydrate for now 5. Depression: Continue Zoloft Result Diagram: 12/15/18213912/15/182139 Results 24hrs Laboratory Tests Test 12/15/18 21:40 12/15/18 23:42 White Blood Count 11.9 #H Red Blood Count 2.46 L Hemoglobin 6.7 #*L Hematocrit 21.4 #L Mean Corpuscular Volume 87.0 Mean Corpuscular Hemoglobin 27.2 L Mean Corpuscular Hemoglobin Concent 31.3 L Red Cell Distribution Width 15.3 H Platelet Count 363 # Mean Platelet Volume 10.2 Immature Granulocytes % 0.400 Neutrophils % 68.7 Lymphocytes % 20.7 Monocytes % 5.5 Eosinophils % 3.7 Basophils % 1.0 Nucleated Red Blood Cells % 0.0 Immature Granulocytes # 0.050 H Neutrophils # 8.2 H Lymphocytes # 2.5 Monocytes # 0.7 Eosinophils # 0.4 Basophils # 0.1 Nucleated Red Blood Cells # 0.0 Pathologist Review (Hematology) YES Prothrombin Time 13.4 Prothrombin Time Ratio 1.0 INR International Normalized Ratio 1.01 Activated Partial Thromboplast Time 25.0 Sodium Level 141 Potassium Level 4.1 Chloride Level 108 Carbon Dioxide Level 22 Anion Gap 11 Blood Urea Nitrogen 27 H Creatinine 1.16 H Est Glomerular Filtrat Rate mL/min Glucose Level 159 Calcium Level 9.1 Troponin I < 0.012 Urine Color YELLOW Urine Clarity SLIGHTLY CLOUDY A Urine pH 6.0 Urine Specific [place] 1.011 Urine Ketones NEGATIVE Urine Nitrite POSITIVE A Urine Bilirubin NEGATIVE Urine Urobilinogen NEGATIVE Urine Leukocyte Esterase 2+ H Urine Microscopic RBC 2 Urine Microscopic WBC 12 H Urine Amorphous Crystals FEW A Urine Bacteria MANY A Urine Hemoglobin 1+ H Urine Glucose NEGATIVE Urine Total Protein NEGATIVE HPI/ROS Admit Date/Time Admit Date/Time Dec 16, 2018 at 00:23 Hx of Present Illness Patient is a 78-year-old female with a history of CAD, CABG, CVA, GI bleed, gastritis, hemorrhoids who presented to ER complaining of dizziness, abdominal discomfort, nausea and generalized weakness. Denied chest pain, shortness of breath, hematemesis, dark stool or BRBPR. Her Plavix was stopped by her sewer cleaner for about 3 days but was resumed yesterday. She thinks Plavix has something to do with her symptoms. When she presented to ER, she was found to have a hemoglobin of 6.7. Patient was admitted here in October of this year for GI bleed. At that time EGD and colonoscopy shows gastritis and hemorrhoids. A few days after discharge from here, she said she was admitted at [facility] for a similar problem and underwent EGD again. She said they found something in her stomach but does not think it was ulcer or cancer. PMH/Family/Social Past Medical History Past Surgical Hx: other Family History Significant Family History: no pertinent family hx Social History Alcohol Use: none Smoking Status: Never smoker Drug Use: none Exam Constitutional: other (No acute distress) Head: normocephalic, atraumatic Eyes: EOMI, PERRL Respiratory: clear to auscultation, normal air movement Cardiovascular: regular rate and rhythm Gastrointestinal: soft Extremities: normal pulses Medications Current Medications Ondansetron HCl (Zofran Inj) 4 mg BRIDGE ORDER PRN IV NAUSEA/VOMITING; Start 12/16/18 at 00:30; Stop 12/17/18 at 00:29 Acetaminophen (Tylenol Tab) 650 mg ER BRIDGE PRN PO .MILD PAIN 1-3 OR TEMP; Start 12/16/18 at 00:30; Stop 12/17/18 at 00:29 Miscellaneous Information Patients own medicat... BID@10,16 XX ; Start 12/16/18 at 10:00 IV Flush (NS 3 ml) 3 ml PER PROTOCOL IV ; Start 12/16/18 at 06:30; Status UNV Ondansetron HCl (Zofran Inj) 4 mg Q6H PRN IV NAUSEA/VOMITING; Start 12/16/18 at 06:30; Status UNV Acetaminophen (Tylenol Tab) 650 mg Q6H PRN PO .PAIN 1-3 OR TEMP; Start 12/16/18 at 06:30; Status UNV Pantoprazole (Protonix Iv) 40 mg DAILY@0600,1800 IV ; Start 12/16/18 at 18:00; Status UNV Albuterol (Ventolin Hfa) 2 puff Q2H RESP THERAPY PRN INH SOB/wheezing; Start 12/16/18 at 06:30; Status UNV Carvedilol (Coreg) 3.125 mg BID PO ; Start 12/16/18 at 09:00; Status UNV Ferrous Sulfate (Ferrous Sulfate (Ec)) 325 mg DAILY PO ; Start 12/16/18 at 09:00; Status UNV Fluticasone Propionate (Flonase 0.05% Nasal) 1 spray BID NASAL ; Start 12/16/18 at 09:00; Status UNV Sertraline HCl (Zoloft) 20 mg DAILY PO ; Start 12/16/18 at 09:00; Status UNV Spironolactone (Aldactone) 25 mg DAILY PO ; Start 12/16/18 at 09:00; Status UNV Miscellaneous Information 1 tab HS PO ; Start 12/16/18 at 21:00; Status UNV Miscellaneous Information 1 tab DAILY ORAL ; Start 12/16/18 at 09:00; Status UNV Coded Allergies: sulfamethoxazole (Verified Allergy, Intermediate, RASH/ ITCHING, 10/21/18) trimethoprim (Verified Allergy, Intermediate, RASH/ ITCHING, 10/21/18) pseudoephedrine (Verified Allergy, Mild, 10/21/18) Past Surgical History Past Surgical Hx: coronary bypass surgery Family History Significant Family History: no pertinent family hx Social History Smoking Status: Never smoker Exam/Review of Systems Vital Signs Vitals Vital Signs Date Temp Pulse Resp B/P (MAP) Pulse Ox O2 O2 Flow FiO2 Time Delivery Rate 12/16/18 97.5 66 17 139/65 100 03:00 (89) 12/16/18 Room Air 02:51 KITA GRIMALDO MD Dec 16, 2018 06:32
[2018-12-16] MEDS: PANTOPRAZOLE 40 MG INJ IV SCH ×2 (06:48→18:28)
[2018-12-16 08:38] VITALS: BP 118/56; PULSE 60; RESP 20
[2018-12-16] MEDS: FERROUS SULFATE (EC) 325 MG TAB PO SCH (08:50)
[2018-12-16] MEDS: SERTRALINE 50 MG TAB PO SCH (08:50)
[2018-12-16] MEDS: FLUTICASONE 0.05% 16 GM NAS SPRAY NASAL SCH ×2 (08:52→20:40)
[2018-12-16] MEDS ORDERED: MIRABEGRON ORAL SCH (09:00)
[2018-12-16] MEDS ORDERED: SPIRONOLACTONE 25 MG TAB PO SCH (09:00)
[2018-12-16] MEDS ORDERED: NA PHOSPHATE/BIPHOS 133 ML ENEMA PR PRN (11:30)
[2018-12-16] MEDS ORDERED: LACTULOSE 30ML CUP PO SCH (12:00)
[2018-12-16] MEDS: LACTULOSE 30ML CUP PO SCH ×4 (13:28→20:40)
[2018-12-16 14:30] VITALS: BP 131/62; PULSE 62; RESP 20
--- NOTE | 2018-12-16 14:44 | PN ---
Date/Time of Note Date/Time of Note DATE: 12/16/18 TIME: 14:42 Assessment/Plan VTE Prophylaxis Risk score (from Ns)>0 risk: 6 SCD applied (from Ns): Yes SCD contraindicated: low risk/ambulating Pharmacological prophylaxis: NA/contraindicated Pharm contraindication: low risk/ambulating Lines/Catheters IV [facility] Peripheral IV Assessment/Plan Hospital Course Hospitalist coverage Assessment plan 1. Symptomatic anemia, stable, may need transfusion 2. Anemia, unknown etiology. Previous EGD colonoscopy and capsule study negative. Consider outpatient hematology eval. 3. Chronic coronary disease/bypass graft status. Status post PCI stents after CABG. May need to continue Plavix unless fainting 4. Chronic diabetes 5. Chronic hypertension X. Constipation Subjective: No active bleed. Weakness with activity. Mild edema. No fever or abdominal pain. Ejective: Vital signs stable Physical exam No pallor adenopathy Regular Clear Benign No edema Result Diagram: 12/15/18213912/15/182139 Results 24hrs Laboratory Tests Test 12/15/18 21:40 12/15/18 23:42 12/16/18 14:07 White Blood Count 11.9 #H Pending Red Blood Count 2.46 L Pending Hemoglobin 6.7 #*L Pending Hematocrit 21.4 #L Pending Mean Corpuscular Volume 87.0 Pending Mean Corpuscular Hemoglobin 27.2 L Pending Mean Corpuscular 31.3 L Pending Hemoglobin Concent Red Cell Distribution Width 15.3 H Pending Platelet Count 363 # Pending Mean Platelet Volume 10.2 Pending Immature Granulocytes % 0.400 Neutrophils % 68.7 Lymphocytes % 20.7 Monocytes % 5.5 Eosinophils % 3.7 Basophils % 1.0 Nucleated Red Blood Cells % 0.0 Immature Granulocytes # 0.050 H Neutrophils # 8.2 H Lymphocytes # 2.5 Monocytes # 0.7 Eosinophils # 0.4 Basophils # 0.1 Nucleated Red Blood Cells # 0.0 Pathologist Review (Hematology) YES Prothrombin Time 13.4 Prothrombin Time Ratio 1.0 INR International 1.01 Normalized Ratio Activated Partial Thromboplast 25.0 Time Sodium Level 141 Potassium Level 4.1 Chloride Level 108 Carbon Dioxide Level 22 Anion Gap 11 Blood Urea Nitrogen 27 H Creatinine 1.16 H Est Glomerular Filtrat Rate mL/min Glucose Level 159 Calcium Level 9.1 Troponin I < 0.012 Urine Color YELLOW Urine Clarity SLIGHTLY CLOUDY A Urine pH 6.0 Urine Specific [place] 1.011 Urine Ketones NEGATIVE Urine Nitrite POSITIVE A Urine Bilirubin NEGATIVE Urine Urobilinogen NEGATIVE Urine Leukocyte Esterase 2+ H Urine Microscopic RBC 2 Urine Microscopic WBC 12 H Urine Amorphous Crystals FEW A Urine Bacteria MANY A Urine Hemoglobin 1+ H Urine Glucose NEGATIVE Urine Total Protein NEGATIVE Exam/Review of Systems Exam Vitals Vital Signs Date Temp Pulse Resp B/P (MAP) Pulse Ox O2 O2 Flow FiO2 Time Delivery Rate 12/16/18 98.6 60 20 118/56 100 Room Air 08:38 (76) Intake and Output 12/15/18 12/15/18 12/16/18 1515:00 23:00 07:00 IntakeIntake Total 700 ml BalanceBalance 700 ml Results Results 24hrs Laboratory Tests Test 12/15/18 21:40 12/15/18 23:42 12/16/18 14:07 White Blood Count 11.9 #H Pending Red Blood Count 2.46 L Pending Hemoglobin 6.7 #*L Pending Hematocrit 21.4 #L Pending Mean Corpuscular Volume 87.0 Pending Mean Corpuscular Hemoglobin 27.2 L Pending Mean Corpuscular 31.3 L Pending Hemoglobin Concent Red Cell Distribution Width 15.3 H Pending Platelet Count 363 # Pending Mean Platelet Volume 10.2 Pending Immature Granulocytes % 0.400 Neutrophils % 68.7 Lymphocytes % 20.7 Monocytes % 5.5 Eosinophils % 3.7 Basophils % 1.0 Nucleated Red Blood Cells % 0.0 Immature Granulocytes # 0.050 H Neutrophils # 8.2 H Lymphocytes # 2.5 Monocytes # 0.7 Eosinophils # 0.4 Basophils # 0.1 Nucleated Red Blood Cells # 0.0 Pathologist Review (Hematology) YES Prothrombin Time 13.4 Prothrombin Time Ratio 1.0 INR International 1.01 Normalized Ratio Activated Partial Thromboplast 25.0 Time Sodium Level 141 Potassium Level 4.1 Chloride Level 108 Carbon Dioxide Level 22 Anion Gap 11 Blood Urea Nitrogen 27 H Creatinine 1.16 H Est Glomerular Filtrat Rate mL/min Glucose Level 159 Calcium Level 9.1 Troponin I < 0.012 Urine Color YELLOW Urine Clarity SLIGHTLY CLOUDY A Urine pH 6.0 Urine Specific [place] 1.011 Urine Ketones NEGATIVE Urine Nitrite POSITIVE A Urine Bilirubin NEGATIVE Urine Urobilinogen NEGATIVE Urine Leukocyte Esterase 2+ H Urine Microscopic RBC 2 Urine Microscopic WBC 12 H Urine Amorphous Crystals FEW A Urine Bacteria MANY A Urine Hemoglobin 1+ H Urine Glucose NEGATIVE Urine Total Protein NEGATIVE Medications Medication Current Medications Miscellaneous Information Patients own medicat... BID@10,16 XX ; Start 12/16/18 at 10:00 IV Flush (NS 3 ml) 3 ml PER PROTOCOL IV ; Start 12/16/18 at 06:30 Ondansetron HCl (Zofran Inj) 4 mg Q6H PRN IV NAUSEA/VOMITING; Start 12/16/18 at 06:30 Acetaminophen (Tylenol Tab) 650 mg Q6H PRN PO .PAIN 1-3 OR TEMP; Start 12/16/18 at 06:30 Pantoprazole (Protonix Iv) 40 mg DAILY@0600,1800 IV Last administered on 12/16/18at 06:48; Admin Dose 40 MG; Start 12/16/18 at 06:30 Albuterol (Ventolin Hfa) 2 puff Q2H RESP THERAPY PRN INH SOB/wheezing; Start 12/16/18 at 06:30 Carvedilol (Coreg) 3.125 mg BID PO Last administered on 12/16/18at 08:52; Admin Dose 3.125 MG; Start 12/16/18 at 09:00 Ferrous Sulfate (Ferrous Sulfate (Ec)) 325 mg DAILY PO Last administered on 12/16/18at 08:50; Admin Dose 325 MG; Start 12/16/18 at 09:00 Fluticasone Propionate (Flonase 0.05% Nasal) 1 spray BID NASAL Last administered on 12/16/18at 08:52; Admin Dose 1 SPRAY; Start 12/16/18 at 09:00 Sertraline HCl (Zoloft) 20 mg DAILY PO Last administered on 12/16/18at 08:50; Admin Dose 20 MG; Start 12/16/18 at 09:00 Spironolactone (Aldactone) 25 mg DAILY PO Last administered on 12/16/18at 08:50; Admin Dose 25 MG; Start 12/16/18 at 09:00 Miscellaneous Information 1 tab HS PO ; Start 12/16/18 at 21:00; Status UNV Miscellaneous Information 1 tab DAILY ORAL ; Start 12/16/18 at 09:00; Status UNV Sodium Biphosphate/ Sodium Phosphate (Fleet Enema) 133 ml PRN PRN PA CONSTIPATION; Start 12/16/18 at 11:30 Lactulose (Enulose) 20 gm Q3H PO Last administered on 12/16/18at 13:28; Admin Dose 20 GM; Start 12/16/18 at 13:00; Stop 12/17/18 at 02:00 MARILEE LAWSON MD Dec 16, 2018 14:44
--- NOTE | 2018-12-16 16:33 | CONS ---
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 # [id number] Past Medical History Home Meds Reported Medications Fluticasone Propionate* (Fluticasone Propionate* Nasal) 50 Mcg/[place] - 16 Gm [place].susp, 1 SPRAY NASAL BID, #1 BOTTLE TO EACH NOSTRIL 12/16/18 Omeprazole* (Omeprazole*) 20 Mg Capsule.dr, 20 MG PO BID for 30 Days 12/16/18 Mirabegron (Myrbetriq) 50 Mg Tab.er.24h, 1 TAB ORAL DAILY 10/21/18 Clopidogrel Bisulfate (Clopidogrel) 75 Mg Tablet, 1 TAB ORAL DAILY 10/21/18 Ferrous Sulfate* (Ferrous Sulfate*) 325 Mg Tabec, 325 MG PO DAILY, TAB 10/21/18 Spironolactone* (Aldactone*) 25 Mg Tablet, 25 MG PO DAILY, TAB 01/21/15 Cyanocobalamin* (Vitamin B-12* SL) 1,000 Mcg Tab.subl, 1000 MG PO DAILY 12/03/12 Ezetimibe-Simvastatin (Vytorin) 1 Tab Tablet, 1 TAB PO HS 12/03/12 Sertraline Hcl* (Sertraline Hcl*) 50 Mg Tablet, 50 TAB PO DAILY 12/03/12 Carvedilol* (Carvedilol*) 12.5 Mg Tablet, 12.5 TAB PO BID 12/03/12 Medications Current Medications Miscellaneous Information Patients own medicat... BID@ XX ; Start 12/16/18 at 10:00 IV Flush (NS 3 ml) 3 ml PER PROTOCOL IV ; Start 12/16/18 at 06:30 Ondansetron HCl (Zofran Inj) 4 mg Q6H PRN IV NAUSEA/VOMITING; Start 12/16/18 at 06:30 Acetaminophen (Tylenol Tab) 650 mg Q6H PRN PO .PAIN 1-3 OR TEMP; Start 12/16/18 at 06:30 Pantoprazole (Protonix Iv) 40 mg DAILY@0600,1800 IV Last administered on 12/16/18at 06:48; Admin Dose 40 MG; Start 12/16/18 at 06:30 Albuterol (Ventolin Hfa) 2 puff Q2H RESP THERAPY PRN INH SOB/wheezing; Start 12/16/18 at 06:30 Carvedilol (Coreg) 3.125 mg BID PO Last administered on 12/16/18at 08:52; Admin Dose 3.125 MG; Start 12/16/18 at 09:00 Ferrous Sulfate (Ferrous Sulfate (Ec)) 325 mg DAILY PO Last administered on 12/16/18at 08:50; Admin Dose 325 MG; Start 12/16/18 at 09:00 Fluticasone Propionate (Flonase 0.05% Nasal) 1 spray BID NASAL Last administered on 12/16/18at 08:52; Admin Dose 1 SPRAY; Start 12/16/18 at 09:00 Sertraline HCl (Zoloft) 20 mg DAILY PO Last administered on 12/16/18at 08:50; Admin Dose 20 MG; Start 12/16/18 at 09:00 Miscellaneous Information 1 tab HS PO ; Start 12/16/18 at 21:00; Status UNV Miscellaneous Information 1 tab DAILY ORAL ; Start 12/16/18 at 09:00; Status UNV Sodium Biphosphate/ Sodium Phosphate (Fleet Enema) [address] CONSTIPATION; Start 12/16/18 at 11:30 Lactulose (Enulose) 20 gm Q3H PO Last administered on 12/16/18at 13:28; Admin Do se 20 GM; Start 12/16/18 at 13:00; Stop 12/17/18 at 02:00 Allergies: Coded Allergies: sulfamethoxazole (Verified Allergy, Intermediate, RASH/ ITCHING, 10/21/18) trimethoprim (Verified Allergy, Intermediate, RASH/ ITCHING, 10/21/18) pseudoephedrine (Verified Allergy, Mild, 10/21/18) Past Surgical History Past Surgical Hx: coronary bypass surgery Social History Smoking Status: Never smoker Exam/Review of Systems Vital Signs Vitals Vital Signs Date Temp Pulse Resp B/P (MAP) Pulse Ox O2 O2 Flow FiO2 Time Delivery Rate 12/16/18 97.8 62 20 131/62 94 14:30 (85) 7/4/19 Room Air 08:38 Intake and Output 12/15/18 12/15/18 12/16/18 1515:00 23:00 07:00 IntakeIntake Total 700 ml BalanceBalance 700 ml Labs Result Diagram: 12/16/18 1407 12/16/18 1407 Results 24hrs Laboratory Tests Test 12/15/18 21:40 12/15/18 23:42 12/16/18 14:07 White Blood Count 11.9 #H 8.5 # Red Blood Count 2.46 L 3.59 #L Hemoglobin 6.7 #*L 9.8 #L Hematocrit 21.4 #L 30.7 #L Mean Corpuscular Volume 87.0 85.5 Mean Corpuscular Hemoglobin 27.2 L 27.3 L Mean Corpuscular 31.3 L 31.9 L Hemoglobin Concent Red Cell Distribution Width 15.3 H 15.2 H Platelet Count 363 # 316 Mean Platelet Volume 10.2 9.6 Immature Granulocytes % 0.400 0.400 Neutrophils % 68.7 60.7 Lymphocytes % 20.7 28.0 Monocytes % 5.5 6.6 Eosinophils % 3.7 3.2 Basophils % 1.0 1.1 Nucleated Red Blood Cells % 0.0 0.0 Immature Granulocytes # 0.050 H 0.030 Neutrophils # 8.2 H 5.2 Lymphocytes # 2.5 2.4 Monocytes # 0.7 0.6 Eosinophils # 0.4 0.3 Basophils # 0.1 0.1 Nucleated Red Blood Cells # 0.0 0.0 Pathologist Review (Hematology) YES Prothrombin Time 13.4 Prothrombin Time Ratio 1.0 INR International 1.01 Normalized Ratio Activated Partial Thromboplast 25.0 Time Sodium Level 141 143 Potassium Level 4.1 4.3 Chloride Level 108 113 H Carbon Dioxide Level 22 20 L Anion Gap 11 10 Blood Urea Nitrogen 27 H 19 Creatinine 1.16 H 1.00 Est Glomerular Filtrat Rate mL/min Glucose Level 159 154 Calcium Level 9.1 8.8 Troponin I < 0.012 Urine Color YELLOW Urine Clarity SLIGHTLY CLOUDY A Urine pH 6.0 Urine Specific [place] 1.011 Urine Ketones NEGATIVE Urine Nitrite POSITIVE A Urine Bilirubin NEGATIVE Urine Urobilinogen NEGATIVE Urine Leukocyte Esterase 2+ H Urine Microscopic RBC 2 Urine Microscopic WBC 12 H Urine Amorphous Crystals FEW A Urine Bacteria MANY A Urine Hemoglobin 1+ H Urine Glucose NEGATIVE Urine Total Protein NEGATIVE Phosphorus Level 3.0 Magnesium Level 2.1 Total Bilirubin 1.0 Direct Bilirubin 0.00 Indirect Bilirubin 1.0 Aspartate Amino 24 Transf (AST/SGOT) Alanine 21 Aminotransferase (ALT/SGPT) Alkaline Phosphatase 82 Total Protein 7.6 Albumin 3.8 Globulin 3.80 H Albumin/Globulin Ratio 1.00 Medications Medications Current Medications Miscellaneous Information Patients own medicat... BID@10,16 XX ; Start 12/16/18 at 10:00 IV Flush (NS 3 ml) 3 ml PER PROTOCOL IV ; Start 12/16/18 at 06:30 Ondansetron HCl (Zofran Inj) 4 mg Q6H PRN IV NAUSEA/VOMITING; Start 12/16/18 at 06:30 Acetaminophen (Tylenol Tab) 650 mg Q6H PRN PO .PAIN 1-3 OR TEMP; Start 12/16/18 at 06:30 Pantoprazole (Protonix Iv) 40 mg DAILY@0600,1800 IV Last administered on 12/16/18at 06:48; Admin Dose 40 MG; Start 12/16/18 at 06:30 Albuterol (Ventolin Hfa) 2 puff Q2H RESP THERAPY PRN INH SOB/wheezing; Start 12/16/18 at 06:30 Carvedilol (Coreg) 3.125 mg BID PO Last administered on 12/16/18at 08:52; Admin Dose 3.125 MG; Start 12/16/18 at 09:00 Ferrous Sulfate (Ferrous Sulfate (Ec)) 325 mg DAILY PO Last administered on 12/16at 08:50; Admin Dose 325 MG; Start 12/16/18 at 09:00 Fluticasone Propionate (Flonase 0.05% Nasal) 1 spray BID NASAL Last administered on 12/16/18at 08:52; Admin Dose 1 SPRAY; Start 12/16/18 at 09:00 Sertraline HCl (Zoloft) 20 mg DAILY PO Last administered on 12/16/18at 08:50; Admin Dose 20 MG; Start 12/16/18 at 09:00 Miscellaneous Information 1 tab HS PO ; Start 12/16/18 at 21:00; Status UNV Miscellaneous Information 1 tab DAILY ORAL ; Start 12/16/18 at 09:00; Status UNV Sodium Biphosphate/ Sodium Phosphate (Fleet Enema) [address] CONSTIPATION; Start 12/16/18 at 11:30 Lactulose (Enulose) 20 gm Q3H PO Last administered on 12/16/18at 13:28; Admin Dose 20 GM; Start 12/16/18 at 13:00; Stop 12/17/18 at 02:00 DIAMOND MAST MD Dec 16, 2018 16:33
--- NOTE | 2018-12-16 16:57 | CONS ---
DATE OF ADMISSION: 12/16/2018 DATE OF CONSULTATION: 12/16/2018 TYPE OF CONSULTATION: Cardiology. REFERRING PHYSICIAN: Ralph Galloway MD REASON FOR EVALUATION: Precordial chest pain, coronary artery disease, prior history of CABG. HISTORY OF PRESENT ILLNESS: Ms. Ivey is a 78-year-old woman, patient of Dr. Burnette from [facility] who came to the hospital now for evaluation of GI bleeding. In the setting of this event, she h ad some precordial chest pain. The patient has been symptomatic for several days. Her hemoglobin on admission is 6.7 and she has been evaluated by GI team. Right now, her Plavix is on hold. The robb ent does not appear to have ruled in for acute myocardial infarction. At this particular point, trop onin was less than 0.012. She is hemodynamically stable and she tolerated transfusion well. I think it is reasonable to hold Plavix now given the fact that her CABG was 10 years ago. Her last interve ntion was many years ago as well. For now, we will continue to monitor. Once her blood transfusion is complete, we will consider further risk stratification as inpatient versus outpatient. 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 ALLERGIES: THE PATIENT IS ALLERGIC TO: 1. PSEUDOEPHEDRINE. 2. SULFA MEDICINES. REVIEW OF SYSTEMS: CONSTITUTIONAL: No fevers, no chills. Weakness and GI bleeding as described. HEENT: No change in vision or hearing. CARDIAC: Chest pain reported with precordial discomfort, now resolved. GASTROINTESTINAL: No nausea, vomiting. GENITOURINARY: No dysuria, hematuria. NEUROLOGIC: No focal deficits. HEMATOLOGIC: No easy bruising. PSYCHIATRIC: History of anxiety. PHYSICAL EXAMINATION: VITAL SIGNS: Temperature is 97.8, heart rate 62, blood pressure is 131/62. GENERAL: She is well-nourished woman in no acute distress, alert and oriented x3, aware of her condi tion. HEENT: Head is normocephalic, atraumatic. Eyes are anicteric. NECK: Supple. JVD is 6 to 7 cm. No lymphadenopathy. No thyromegaly. HEART: Regular, soft holosystolic murmur. She has midsternal scar. LUNGS: Coarse to base. ABDOMEN: Distended. Bowel sounds are present. There is no hepatosplenomegaly. GENITOURINARY: Intact. EXTREMITIES: No clubbing or cyanosis. Trace edema. DIAGNOSTIC DATA: No ECG is available for my review but I am going to order one shortly. LABORATORY DATA: White blood cell count is 8.5, hemoglobin is 6.7 to 9.8. Troponin is negative at 0 .012. Creatinine is 1.0 to 1.16. ASSESSMENT AND PLAN: 1. Precordial chest pain. The patient has precordial chest pain in setting of acute anemia. Tropon in is negative. The patient reports having stress test a year ago. I think it is reasonable to raza tor clinically. For now, we will agree with holding her Plavix. 2. History of coronary artery disease. The patient has history of coronary artery disease and CABG 10 years ago. She has a history of drug-eluting stents more than 5 years ago. It is reasonable to h old Plavix for now. We will continue to monitor. 3. Renal insufficiency. Creatinine improved with hydration and blood transfusion. We will follow. 4. Gastrointestinal bleeding. Hemoglobin was replaced. She tolerated transfusion. GI team to heidi gordon. 5. Prior history of cerebrovascular accident. Defer to primary team. I would like to thank Dr. Galloway for referring this patient for my evaluation. Dictated By: DIAMOND MAST MD ML/NTS Conf#: [id number] DID#: [id number] CC: LINDSEY TYLER MD; KITA GRIMALDO MD;*End*
[2018-12-16 20:00] VITALS: BP 147/67; PULSE 69; RESP 19
[2018-12-16] MEDS ORDERED: EZETIMIBE SIMVASTATIN PO SCH (21:00)
[2018-12-17] VITALS (21 sets, daily range): BP systolic 118–164; BP diastolic 54–79; PULSE 52–86; RESP 13–23
[2018-12-17] MEDS: LACTULOSE 30ML CUP PO SCH (00:50)
[2018-12-17] MEDS: PANTOPRAZOLE 40 MG INJ IV SCH ×2 (06:00→18:12)
[2018-12-17] MEDS: FERROUS SULFATE (EC) 325 MG TAB PO SCH (09:00)
[2018-12-17] MEDS: SERTRALINE 50 MG TAB PO SCH (09:00)
[2018-12-17] MEDS: FLUTICASONE 0.05% 16 GM NAS SPRAY NASAL SCH ×2 (09:00→20:44)
--- NOTE | 2018-12-17 09:44 | CONS ---
Consult Date/Type/Reason Admit Date/Time Dec 16, 2018 at 00:23 Initial Consult Date Date/Time of Note DATE: 12/17/18 TIME: 09:42 Subjective NO acute events - pt comfortable - EGD planned today - OK to proceed from cardiac standpoint. ROS: No fever, no chills, no nausea, no vomiting, no diarrhea/constipation No recent weight changes No chest pain, no PND, no orthopnea No dizziness, blurred vision No thirst, no heat or cold intolerance Objective Vitals Vital Signs Date Temp Pulse Resp B/P (MAP) Pulse Ox O2 O2 Flow FiO2 Time Delivery Rate 12/17/18 97.8 68 16 143/65 98 Room Air 07:28 (91) Intake and Output 12/16/18 12/16/18 12/17/18 1414:59 22:59 06:59 IntakeIntake Total 350 ml 350 ml BalanceBalance 350 ml 350 ml Exam General: WN/WD/NAD, AOx 3 HEENT: Unicetric/atraumatic/EOMI (follows commands) NECK: JVD elevated, no thyromegaly Lymph: no lymphadenopathy HEART: regular with no S3, II/ systolic murmur at apex LUNGS: Coarse sounds ABD: soft, NT, ND, +BS : Intact Neuro: non focal SKIN: chronic changes EXT: trace edema Results/Medications Result Diagram: 12/17/1851612/17/18 0517 Results 24 hrs Laboratory Tests Test 12/16/18 13:00 12/16/18 14:07 12/17/18 05:17 Stool Occult Blood NEGATIVE White Blood Count 8.5 # 8.3 Red Blood Count 3.59 #L 3.68 L Hemoglobin 9.8 #L 10.0 L Hematocrit 30.7 #L 31.2 L Mean Corpuscular Volume 85.5 84.8 Mean Corpuscular Hemoglobin 27.3 L 27.2 L Mean Corpuscular Hemoglobin Concent 31.9 L 32.1 Red Cell Distribution Width 15.2 H 15.7 H Platelet Count 316 328 Mean Platelet Volume 9.6 9.7 Immature Granulocytes % 0.400 0.200 Neutrophils % 60.7 46.9 Lymphocytes % 28.0 37.3 Monocytes % 6.6 9.0 Eosinophils % 3.2 5.3 Basophils % 1.1 1.3 Nucleated Red Blood Cells % 0.0 0.2 H Immature Granulocytes # 0.030 0.020 Neutrophils # 5.2 3.9 Lymphocytes # 2.4 3.1 H Monocytes # 0.6 0.8 Eosinophils # 0.3 0.4 Basophils # 0.1 0.1 Nucleated Red Blood Cells # 0.0 0.0 Sodium Level 143 145 H Potassium Level 4.3 3.9 Chloride Level 113 H 113 H Carbon Dioxide Level 20 L 22 Anion Gap 10 10 Blood Urea Nitrogen 19 18 Creatinine 1.00 1.04 H Est Glomerular Filtrat Rate mL/min Glucose Level 154 99 # Calcium Level 8.8 9.6 Phosphorus Level 3.0 3.5 Magnesium Level 2.1 2.2 Total Bilirubin 1.0 Direct Bilirubin 0.00 Indirect Bilirubin 1.0 Aspartate Amino Transf (AST/SGOT) 24 Alanine Aminotransferase (ALT/SGPT) 21 Alkaline Phosphatase 82 Total Protein 7.6 Albumin 3.8 Globulin 3.80 H Albumin/Globulin Ratio 1.00 Thyroid Stimulating Hormone (TSH) 3.820 Total Triiodothyronine 0.98 Home Meds Reported Medications Fluticasone Propionate* (Fluticasone Propionate* Nasal) 50 Mcg/[place] - 16 Gm [place].susp, 1 SPRAY NASAL BID, #1 BOTTLE TO EACH NOSTRIL 12/16/18 Omeprazole* (Omeprazole*) 20 Mg Capsule.dr, 20 MG PO BID for 30 Days 12/16/18 Mirabegron (Myrbetriq) 50 Mg Tab.er.24h, 1 TAB ORAL DAILY 10/21/18 Clopidogrel Bisulfate (Clopidogrel) 75 Mg Tablet, 1 TAB ORAL DAILY 10/21/18 Ferrous Sulfate* (Ferrous Sulfate*) 325 Mg Tabec, 325 MG PO DAILY, TAB 10/21/18 Spironolactone* (Aldactone*) 25 Mg Tablet, 25 MG PO DAILY, TAB 01/21/15 Cyanocobalamin* (Vitamin B-12* SL) 1,000 Mcg Tab.subl, 1000 MG PO DAILY 12/03/12 Ezetimibe-Simvastatin (Vytorin) 1 Tab Tablet, 1 TAB PO HS 12/03/12 Sertraline Hcl* (Sertraline Hcl*) 50 Mg Tablet, 50 TAB PO DAILY 12/03/12 Carvedilol* (Carvedilol*) 12.5 Mg Tablet, 12.5 TAB PO BID 12/03/12 Medications Current Medications Miscellaneous Information Patients own medicat... BID@10,16 XX ; Start 12/16/18 at 10:00 IV Flush (NS 3 ml) 3 ml PER PROTOCOL IV ; Start 12/16/18 at 06:30 Ondansetron HCl (Zofran Inj) 4 mg Q6H PRN IV NAUSEA/VOMITING; Start 12/16/18 at 06:30 Acetaminophen (Tylenol Tab) 650 mg Q6H PRN PO .PAIN 1-3 OR TEMP; Start 12/16/18 at 06:30 Pantoprazole (Protonix Iv) 40 mg DAILY@0600,1800 IV Last administered on 12/16/18at 18:28; Admin Dose 40 MG; Start 12/16/18 at 06:30 Albuterol (Ventolin Hfa) 2 puff Q2H RESP THERAPY PRN INH SOB/wheezing; Start 12/16/18 at 06:30 Carvedilol (Coreg) 3.125 mg BID PO Last administered on 12/16/18at 20:41; Admin Dose 3.125 MG; Start 12/16/18 at 09:00 Ferrous Sulfate (Ferrous Sulfate (Ec)) 325 mg DAILY PO Last administered on 12/16/18at 08:50; Admin Dose 325 MG; Start 12/16/18 at 09:00 Fluticasone Propionate (Flonase 0.05% Nasal) 1 spray BID NASAL Last administered on 12/16/18at 20:40; Admin Dose 1 SPRAY; Start 12/16/18 at 09:00 Sertraline HCl (Zoloft) 20 mg DAILY PO Last administered on 12/16/18at 08:50; Admin Dose 20 MG; Start 12/16/18 at 09:00 Miscellaneous Information 1 tab HS PO ; Start 12/16/18 at 21:00; Status UNV Miscellaneous Information 1 tab DAILY ORAL ; Start 12/16/18 at 09:00; Status UNV Sodium Biphosphate/ Sodium Phosphate (Fleet Enema) 133 ml PRN PRN [place] CONSTIPATION; Start 12/16/18 at 11:30 Assessment/Plan Hospital Course (Demo Recall) 1. Precordial chest pain. The patient has precordial chest pain in setting of acute anemia. Troponin is negative. The patient reports having stress test a year ago. I think it is reasonable to monitor clinically. For now, we will agree with holding her Plavix. OK to proceed with EGD if needed +/- colonoscopy. 2. History of coronary artery disease. The patient has history of coronary artery disease and CABG 10 years ago. She has a history of drug-eluting stents more than 5 years ago. It is reasonable to hold Plavix for now. We will con tinue to monitor. NO CP now. 3. Renal insufficiency. Creatinine improved with hydration and blood transfusion. We will follow. 4. Gastrointestinal bleeding. Hemoglobin was replaced. She tolerated transfusion. GI team to follow. H/H at 10.0 post blood Tx. 5. Prior history of cerebrovascular accident. Defer to primary team. DIAMOND MAST MD Dec 17, 2018 09:44
--- NOTE | 2018-12-17 13:23 | CONS ---
DATE OF ADMISSION: 12/16/2018 DATE OF CONSULTATION: 12/16/2018 TYPE OF CONSULTATION: Gastroenterology. Dear Dr. Yuen: Thank you for asking me to see Mrs. Ivey in GI consultation. HISTORY OF PRESENT ILLNESS: The patient, as you know, is a 78-year-old [place] female, is admitted to the hospital because of the history of severe anemia with hemoglobin 6.7 grams. She has had a severe GI workup in the past which showed evidence of gastritis and hemorrhoids several months ago. At this time, she is admitted because of dizziness and abdominal discomfort, nausea and generalized weakness. No history of vomiting blood or passing blood from the rectum. She has been on Plavix from time to time. This now is on hold for the past 3 days. She has history of coronary artery disease, coronary artery bypass surgery, history of CVA. CURRENT MEDICATIONS: Includes: 1. Zofran. 2. Tylenol. 3. Protonix. 4. Coreg. 5. Ferrous sulfate. 6. Zoloft. 7. Aldactone. CLINICAL IMPRESSION: From a GI standpoint, she has gastritis and hemorrhoids. However, she also had a capsule endoscopy, which apparently showed no evidence of pathology as well as the patient can tel l, but I need to get the records for more information. PAST SURGICAL HISTORY: Includes coronary artery bypass graft. FAMILY HISTORY: Not significant history available. PHYSICAL EXAMINATION: GENERAL: The patient is a 78-year-old [place] female seen by me on 12/16/2018. VITAL SIGNS: Pulse 70 per minute, blood pressure is 128/60. CARDIOVASCULAR: Normal heart sounds. RESPIRATORY: Normal breath sounds. ABDOMEN: Showed a soft abdomen with no palpable masses, no tenderness, no distention. LABORATORY WORKUP: On admission, hemoglobin was 7.7 and hematocrit 21.4, WBC 7900, platelet count 36 3,000, hemoglobin went up to 9.8 after transfusion. Potassium 4.3, sodium 143, chloride is 113, BUN is 19, creatinine is 1.0, bilirubin 1.0, AST 24, ALT 21, alkaline phosphatase 82, albumin 3.8, TSH is 3.8. The chest x-ray shows evidence of cardiomegaly, previous sternotomy. IMPRESSION: From the GI standpoint, the patient has severe anemia with history of dark stools. Hist ory of gastritis and hemorrhoids in the past. It is quite possible we may be dealing with arterioven ous malformation of the GI tract, but the problem is we do not know exactly what is the location. Sh e needs to have endoscopy and colonoscopy for possibility of arteriovenous malformation which can be causing intermittent bleeding. Capsule endoscopy was supposed to be negative. That needs to be revi ewed by me and she may need a double balloon enteroscopy. Once again, Dr. Yuen, thank you for this consultation. Dictated By: LINDSEY TYLER MD NC/NTS Conf#: [id number] DID#: [id number] CC: KITA YUEN MD;*EndCC*
--- NOTE | 2018-12-17 14:14 | PREAC ---
Date/Time of Note Date/Time of Note DATE: 12/17/18 TIME: 14:12 Anesthesia Eval and Record Evaluation Time Pre-Procedure Interview DATE: 12/17/18 TIME: 14:12 Age 78 Sex female NPO: 8 hrs Preoperative diagnosis gi bleed Planned procedure egd colonoscopy Past Medical History Past Medical History: Includes Cardio: HTN, CABG Neuro: CVA Renal: HERB Surgery & Anesthesia Issues No known issue Meds Anticoagulation: Yes Beta Junior within 24 hr: Yes Reported Medications Fluticasone Propionate* (Fluticasone Propionate* Nasal) 50 Mcg/[place] - 16 Gm [place].susp, 1 SPRAY NASAL BID, #1 BOTTLE TO EACH NOSTRIL 12/16/18 Omeprazole* (Omeprazole*) 20 Mg Capsule.dr, 20 MG PO BID for 30 Days 12/16/18 Mirabegron (Myrbetriq) 50 Mg Tab.er.24h, 1 TAB ORAL DAILY 10/21/18 Clopidogrel Bisulfate (Clopidogrel) 75 Mg Tablet, 1 TAB ORAL DAILY 10/21/18 Ferrous Sulfate* (Ferrous Sulfate*) 325 Mg Tabec, 325 MG PO DAILY, TAB 10/21/18 Spironolactone* (Aldactone*) 25 Mg Tablet, 25 MG PO DAILY, TAB 01/21/15 Cyanocobalamin* (Vitamin B-12* SL) 1,000 Mcg Tab.subl, 1000 MG PO DAILY 12/03/12 Ezetimibe-Simvastatin (Vytorin) 1 Tab Tablet, 1 TAB PO HS 12/03/12 Sertraline Hcl* (Sertraline Hcl*) 50 Mg Tablet, 50 TAB PO DAILY 12/03/12 Carvedilol* (Carvedilol*) 12.5 Mg Tablet, 12.5 TAB PO BID 12/03/12 Current Medications Miscellaneous Information Patients own medicat... BID@10,16 XX ; Start 12/16/18 at 10:00 IV Flush (NS 3 ml) 3 ml PER PROTOCOL IV ; Start 12/16/18 at 06:30 Ondansetron HCl (Zofran Inj) 4 mg Q6H PRN IV NAUSEA/VOMITING; Start 12/16/18 at 06:30 Acetaminophen (Tylenol Tab) 650 mg Q6H PRN PO .PAIN 1-3 OR TEMP; Start 12/16/18 at 06:30 Pantoprazole (Protonix Iv) 40 mg DAILY@0600,1800 IV Last administered on 12/16/18 18:28; Admin Dose 40 MG; Start 12/16/18 at 06:30 Albuterol (Ventolin Hfa) 2 puff Q2H RESP THERAPY PRN INH SOB/wheezing; Start 12/16/18 at 06:30 Carvedilol (Coreg) 3.125 mg BID PO Last administered on 12/16/18at 20:41; Admin Dose 3.125 MG; Start 12/16/18 at 09:00 Ferrous Sulfate (Ferrous Sulfate (Ec)) 325 mg DAILY PO Last administered on 12/16/18 08:50; Admin Dose 325 MG; Start 12/16/18 at 09:00 Fluticasone Propionate (Flonase 0.05% Nasal) 1 spray BID NASAL Last administered on 12/16/18at 20:40; Admin Dose 1 SPRAY; Start 12/16/18 at 09:00 Sertraline HCl (Zoloft) 20 mg DAILY PO Last administered on 12/16/18at 08:50; Admin Dose 20 MG; Start 12/16/18 at 09:00 Miscellaneous Information 1 tab HS PO ; Start 12/16/18 at 21:00; Status UNV Miscellaneous Information 1 tab DAILY ORAL ; Start 12/16/18 at 09:00; Status UNV Sodium Biphosphate/ Sodium Phosphate (Fleet Enema) 133 ml PRN PRN [place] CONSTIPATION; Start 12/16/18 at 11:30 Meds reviewed: Yes Allergies Coded Allergies: sulfamethoxazole (Verified Allergy, Intermediate, RASH/ ITCHING, 10/21/18) trimethoprim (Verified Allergy, Intermediate, RASH/ ITCHING, 10/21/18) pseudoephedrine (Verified Allergy, Mild, 10/21/18) Allergies Reviewed: Yes Labs/Studies Labs Reviewed: Reviewed by anesthesiologist Result Diagram: 12/17/1817 12/17/18 0517 Laboratory Tests 12/17/18 05:17 test: Negative Pre-procedure Exam Last vitals Vital Signs Date Temp Pulse Resp B/P (MAP) Pulse Ox O2 O2 Flow FiO2 Time Delivery Rate 12/17/18 97.5 66 16 164/72 99 Room Air 13:21 (102) Airway: Adequate mouth opening Mallampati: Mallampati I Teeth: Normal Lung: Normal Heart: Normal ASA Physical Status ASA physical status: 3 Emergency: None Planned Anesthetic General/MAC: MAC Pre-operative Attestations Prior to commencing anesthesia and surgery, the patient was re-evaluated, there was verification of: *The patient's identity *The results of appropriate recent lab work and preoperative vital signs *The above evaluation not changing prior to induction *Anesthetic plan, risk benefits, alternative and complications discussed with patient/family; questions answered; patient/family understands, accepts and wishes to proceed. KARLY VELEZ MD Dec 17, 2018 14:14
[2018-12-17] MEDS ORDERED: ETOMIDATE 20 MG INJ ONE (14:18)
[2018-12-17] MEDS ORDERED: PROPOFOL 200 MG INJ ONE (14:18)
--- NOTE | 2018-12-17 14:32 | PN ---
Date/Time of Note Date/Time of Note DATE: 12/17/18 TIME: 14:30 Assessment/Plan VTE Prophylaxis Risk score (from Ns)>0 risk: 5 SCD applied (from Ns): Yes SCD contraindicated: low risk/ambulating Pharmacological prophylaxis: NA/contraindicated Pharm contraindication: low risk/ambulating Lines/Catheters IV C[facility]ter Type (from [facility] Peripheral IV Assessment/Plan Hospital Course Hospitalist coverage Assessment plan 1. Symptomatic anemia, stable, may need transfusion. EGD- P 2. Anemia, unknown etiology. Previous EGD colonoscopy and capsule study negative. Consider outpatient hematology eval. 3. Chronic CAD/ cabg. Status post PCI stents after CABG. May need to continue Plavix unless fainting 4. Chronic diabetes 5. Chronic hypertension X. Constipation 7. External hemorrhoids related? 8. History of gastritis H. pylori negative. 9. Diverticulosis. 10. Old stroke by imaging S: /4 no active bleed. Weakness with activity. Mild edema. No fever or abdominal pain. 12/17 patient for EGD no active bleed noted O: Vital signs stable Physical exam -Deferred patient GI lab Result Diagram: 12/17/18 0517 12/17/18 0517 Results 24hrs Laboratory Tests Test 12/17/18 05:17 White Blood Count 8.3 Red Blood Count 3.68 L Hemoglobin 10.0 L Hematocrit 31.2 L Mean Corpuscular Volume 84.8 Mean Corpuscular Hemoglobin 27.2 L Mean Corpuscular Hemoglobin Concent 32.1 Red Cell Distribution Width 15.7 H Platelet Count 328 Mean Platelet Volume 9.7 Immature Granulocytes % 0.200 Neutrophils % 46.9 Lymphocytes % 37.3 Monocytes % 9.0 Eosinophils % 5.3 Basophils % 1.3 Nucleated Red Blood Cells % 0.2 H Immature Granulocytes # 0.020 Neutrophils # 3.9 Lymphocytes # 3.1 H Monocytes # 0.8 Eosinophils # 0.4 Basophils # 0.1 Nucleated Red Blood Cells # 0.0 Sodium Level 145 H Potassium Level 3.9 Chloride Level 113 H Carbon Dioxide Level 22 Anion Gap 10 Blood Urea Nitrogen 18 Creatinine 1.04 H Est Glomerular Filtrat Rate mL/min Glucose Level 99 # Calcium Level 9.6 Phosphorus Level 3.5 Magnesium Level 2.2 Thyroid Stimulating Hormone (TSH) 3.820 Total Triiodothyronine 0.98 Exam/Review of Systems Exam Vitals Vital Signs Date Temp Pulse Resp B/P (MAP) Pulse Ox O2 O2 Flow FiO2 Time Delivery Rate 12/17/18 97.5 66 16 164/72 99 Room Air 13:21 (102) Intake and Output 12/16/18 12/16/18 12/17/18 1515:00 23:00 07:00 IntakeIntake Total 350 ml 350 ml BalanceBalance 350 ml 350 ml Results Results 24hrs Laboratory Tests Test 12/17/18 05:17 White Blood Count 8.3 Red Blood Count 3.68 L Hemoglobin 10.0 L Hematocrit 31.2 L Mean Corpuscular Volume 84.8 Mean Corpuscular Hemoglobin 27.2 L Mean Corpuscular Hemoglobin Concent 32.1 Red Cell Distribution Width 15.7 H Platelet Count 328 Mean Platelet Volume 9.7 Immature Granulocytes % 0.200 Neutrophils % 46.9 Lymphocytes % 37.3 Monocytes % 9.0 Eosinophils % 5.3 Basophils % 1.3 Nucleated Red Blood Cells % 0.2 H Immature Granulocytes # 0.020 Neutrophils # 3.9 Lymphocytes # 3.1 H Monocytes # 0.8 Eosinophils # 0.4 Basophils # 0.1 Nucleated Red Blood Cells # 0.0 Sodium Level 145 H Potassium Level 3.9 Chloride Level 113 H Carbon Dioxide Level 22 Anion Gap 10 Blood Urea Nitrogen 18 Creatinine 1.04 H Est Glomerular Filtrat Rate mL/min Glucose Level 99 # Calcium Level 9.6 Phosphorus Level 3.5 Magnesium Level 2.2 Thyroid Stimulating Hormone (TSH) 3.820 Total Triiodothyronine 0.98 Medications Medication Current Medications Miscellaneous Information Patients own medicat... BID@10,16 XX ; Start 12/16/18 at 10:00 IV Flush (NS 3 ml) 3 ml PER PROTOCOL IV ; Start 12/16/18 at 06:30 Ondansetron HCl (Zofran Inj) 4 mg Q6H PRN IV NAUSEA/VOMITING; Start 12/16/18 at 06:30 Acetaminophen (Tylenol Tab) 650 mg Q6H PRN PO .PAIN 1-3 OR TEMP; Start 12/16/18 at 06:30 Pantoprazole (Protonix Iv) 40 mg DAILY@0600,1800 IV Last administered on 12/16/18at 18:28; Admin Dose 40 MG; Start 12/16/18 at 06:30 Albuterol (Ventolin Hfa) 2 puff Q2H RESP THERAPY PRN INH SOB/wheezing; Start 12/16/18 at 06:30 Carvedilol (Coreg) 3.125 mg BID PO Last administered on 12/16/18at 20:41; Admin Dose 3.125 MG; Start 12/16/18 at 09:00 Ferrous Sulfate (Ferrous Sulfate (Ec)) 325 mg DAILY PO Last administered on 12/16/18at 08:50; Admin Dose 325 MG; Start 12/16/18 at 09:00 Fluticasone Propionate (Flonase 0.05% Nasal) 1 spray BID NASAL Last administered on 12/16/18at 20:40; Admin Dose 1 SPRAY; Start 12/16/18 at 09:00 Sertraline HCl (Zoloft) 20 mg DAILY PO Last administered on 12/16/18at 08:50; Admin Dose 20 MG; Start 12/16/18 at 09:00 Miscellaneous Information 1 tab HS PO ; Start 12/16/18 at 21:00; Status UNV Miscellaneous Information 1 tab DAILY ORAL ; Start 12/16/18 at 09:00; Status UNV Sodium Biphosphate/ Sodium Phosphate (Fleet Enema) 133 ml PRN PRN [place] CONSTIPATION; Start 12/16/18 at 11:30 MARILEE LAWSON MD Dec 17, 2018 14:32
--- NOTE | 2018-12-17 14:58 | PAC ---
Date/Time of Note Date/Time of Note DATE: 12/17/18 TIME: 14:58 Post-Anesthesia Notes Post-Anesthesia Note Last documented vital signs Vital Signs Date Temp Pulse Resp B/P (MAP) Pulse Ox O2 O2 Flow FiO2 Time Delivery Rate 12/17/18 97.5 66 16 164/72 99 Room Air 13:21 (102) Activity: WNL Respiratory function: WNL Cardiovascular function: WNL Mental status: Baseline Pain reasonably controlled: Yes Hydration appropriate: Yes Nausea/Vomiting absent: Yes KARLY VELEZ MD Dec 17, 2018 14:58
[2018-12-18 02:44] VITALS: BP 114/54; PULSE 64; RESP 16
[2018-12-18] MEDS: PANTOPRAZOLE 40 MG INJ IV SCH (05:35)
[2018-12-18 08:00] VITALS: BP 122/56; PULSE 63; RESP 19
[2018-12-18] MEDS: FLUTICASONE 0.05% 16 GM NAS SPRAY NASAL SCH (08:50)
[2018-12-18] MEDS: FERROUS SULFATE (EC) 325 MG TAB PO SCH (08:54)
[2018-12-18] MEDS: SERTRALINE 50 MG TAB PO SCH (08:56)
[2018-12-18 14:00] VITALS: BP 100/54; PULSE 61; RESP 17
--- NOTE | 2018-12-18 14:14 | CONS ---
Consultation Date/Type/Reason Admit Date/Time Dec 16, 2018 at 00:23 Initial Consult Date Type of Consult Cardiology Date/Time of Note DATE: 12/18/18 TIME: 14:13 24 HR Interval Summary Free Text/Dictation Pt in MRI now per nursing report - Vs stable - reviewed. Exam/Review of Systems Vital Signs Vitals Vital Signs Date Temp Pulse Resp B/P (MAP) Pulse Ox O2 O2 Flow FiO2 Time Delivery Rate 12/18/18 97.9 63 19 122/56 100 Room Air 08:00 (78) 12/17/18 2.0 15:18 Intake and Output 12/17/18 12/17/18 12/18/18 1515:00 23:00 07:00 IntakeIntake Total 420 ml 350 ml BalanceBalance 420 ml 350 ml Labs Result Diagram: 12/18/18 0540 12/18/18 0539 Results 24hrs Laboratory Tests Test 12/18/18 05:39 12/18/18 05:40 Sodium Level 144 Potassium Level 3.8 Chloride Level 113 H Carbon Dioxide Level 21 Anion Gap 10 Blood Urea Nitrogen 14 Creatinine 0.96 Est Glomerular Filtrat Rate mL/min Glucose Level 102 Calcium Level 8.9 Phosphorus Level 3.9 Magnesium Level 2.0 Total Bilirubin 0.5 Direct Bilirubin 0.00 Indirect Bilirubin 0.5 Aspartate Amino Transf (AST/SGOT) 25 Alanine Aminotransferase (ALT/SGPT) 15 Alkaline Phosphatase 86 Total Protein 7.2 Albumin 3.6 Globulin 3.60 H Albumin/Globulin Ratio 1.00 White Blood Count 10.5 # Red Blood Count 3.73 L Hemoglobin 10.0 L Hematocrit 31.4 L Mean Corpuscular Volume 84.2 Mean Corpuscular Hemoglobin 26.8 L Mean Corpuscular Hemoglobin Concent 31.8 L Red Cell Distribution Width 15.5 H Platelet Count 310 Mean Platelet Volume 9.7 Immature Granulocytes % 0.400 Neutrophils % 61.0 Lymphocytes % 25.2 Monocytes % 7.6 Eosinophils % 4.9 Basophils % 0.9 Nucleated Red Blood Cells % 0.0 Immature Granulocytes # 0.040 H Neutrophils # 6.4 Lymphocytes # 2.6 Monocytes # 0.8 Eosinophils # 0.5 Basophils # 0.1 Nucleated Red Blood Cells # 0.0 Medications Medications Current Medications Miscellaneous Information Patients own medicat... BID@10,16 XX ; Start 12/16/18 at 10:00 IV Flush (NS 3 ml) 3 ml PER PROTOCOL IV ; Start 12/16/18 at 06:30 Ondansetron HCl (Zofran Inj) 4 mg Q6H PRN IV NAUSEA/VOMITING Last administered on 12/17/18at 22:30; Admin Dose 4 MG; Start 12/16/18 at 06:30 Acetaminophen (Tylenol Tab) 650 mg Q6H PRN PO .PAIN 1-3 OR TEMP; Start 12/16/18 at 06:30 Pantoprazole (Protonix Iv) 40 mg DAILY@0600,1800 IV Last administered on 12/18/18at 05:35; Admin Dose 40 MG; Start 12/16/18 at 06:30 Albuterol (Ventolin Hfa) 2 puff Q2H RESP THERAPY PRN INH SOB/wheezing; Start 12/16/18 at 06:30 Carvedilol (Coreg) 3.125 mg BID PO Last administered on 12/18/18at 08:56; Admin Dose 3.125 MG; Start 12/16/18 at 09:00 Ferrous Sulfate (Ferrous Sulfate (Ec)) 325 mg DAILY PO Last administered on 12/18/18 08:54; Admin Dose 325 MG; Start 12/16/18 at 09:00 Fluticasone Propionate (Flonase 0.05% Nasal) 1 spray BID NASAL Last administered on 12/17/18at 20:44; Admin Dose 1 SPRAY; Start 12/16/18 at 09:00 Sertraline HCl (Zoloft) 20 mg DAILY PO Last administered on 12/18/18 08:56; Admin Dose 20 MG; Start 12/16/18 at 09:00 Miscellaneous Information 1 tab HS PO ; Start 12/16/18 at 21:00; Status UNV Miscellaneous Information 1 tab DAILY ORAL ; Start 12/16/18 at 09:00; Status UNV Sodium Biphosphate/ Sodium Phosphate (Fleet Enema) 133 ml PRN PRN [place] CONSTIPATION; Start 12/16/18 at 11:30 DIAMOND MAST MD Dec 18, 2018 14:14
--- NOTE | 2018-12-18 17:00 | PDOCDIS ---
Discharge Instructions CONDITION [id number] Patient Condition: [id number] Stable HOME CARE INSTRUCTIONS: [id number] Diet Instructions: [id number] Low Fat /Cholesterol ACTIVITY: [id number] Activity Restrictions: [id number] Slowly Increase Activity Do not Drive FOLLOW UP/APPOINTMENTS Follow-up Plan appt Primary 1wk. Regular Cardiology 1-2wks. GI Dr Barron 1wk. ask primary to call Medical Records [] for Summary. MARILEE LAWSON MD Dec 18, 2018 17:00
[2018-12-18] MEDS ORDERED: ACET325T33 PO (17:03)
[2018-12-18] MEDS ORDERED: PANT40TA3 PO (17:03)
[2018-12-18] MEDS ORDERED: CARV12.579 PO (17:03)
[2018-12-18] MEDS ORDERED: DOCU-144 PO (17:04)
--- NOTE | 2018-12-18 19:17 | DS ---
Date/Time of Note Date/Time of Note DATE: 12/18/18 TIME: 19:11 Discharge Summary Admission/Discharge Info Admit Date/Time Dec 16, 2018 at 00:23 Discharge Date/Time Dec 18, 2018 at 18:24 Patient Condition: Stable Consults Dr Beatrice James Procedures Chest x-ray: No acute process Occult blood stool: None CAT scan of brain IMPRESSION: 1. Atrophy. 2. Microangiopathic ischemic change. 3. Atherosclerosis. 4. No intracranial hemorrhage. 5. Unchanged old infarcts in the left parietal lobe and right basal ganglia. 6. Otherwise unremarkable noncontrast CT scan of the brain. Hx of Present Illness admitted with fatigue. Anemia noted in the ER. Hospital Course Hospitalist coverage Hospital course Admitted with symptomatic anemia. Transfused. Seen by GI. Underwent endoscopy. in addition to esophagitis, gerd, diverticulosis, hemorrhoids, egd showed gastric AVM, sp endoscopic therapy. Hb @10.0; stable and fit for discharge. Has stents, needs plavix. home on PPI. To see GI as outpt, for possible capsule study or push enteroscopy to evaluate small bowel. Assessment plan 1. Symptomatic anemia, stable, s/p transfusion & EGD; path pending; needs to see GI next week 2. Anemia, unknown etiology/ multifactorial? Past EGD/ colonoscopy/ capsule study negative? Consider outpatient hematology eval. 3. Chronic CAD/ cabg. Sp PCI/ stents after CABG. May need to continue Plavix unless fainting 4. Chronic diabetes 5. Chronic hypertension 6. Constipation 7. External hemorrhoids related? 8. History of gastritis H. pylori negative. 9. Diverticulosis. 10. Old stroke by imaging S: /4 no active bleed. Weakness with activity. Mild edema. No fever or abdominal pain. 7/ patient for EGD no active bleed noted 12/18 feels better; fatigue remains; family updated. Home Meds Active Scripts Docusate Sodium* (Colace*) 100 Mg Capsule, 100 MG PO BID for 7 Days, #1 CAP otc Prov:MARILEE LAWSON MD 12/18/18 Pantoprazole* (Protonix*) 40 Mg Tablet., 40 MG PO DAILY for 30 Days, #30 TAB 1 Refill Prov:MARILEE LAWSON MD 12/18/18 Carvedilol* (Carvedilol*) 12.5 Mg Tablet, 3.125 MG PO BID for 10 Days, #20 TAB Prov:MARILEE LAWSON MD 12/18/18 Acetaminophen* (Tylenol*) 325 Mg Tablet, 650 MG PO Q6H PRN for .PAIN 1-3 OR TEMP for 1 Day, #1 TAB Prov:MARILEE LAWSON MD 12/18/18 Reported Medications Fluticasone Propionate* (Fluticasone Propionate* Nasal) 50 Mcg/[place] - 16 Gm [place].susp, 1 SPRAY NASAL BID, #1 BOTTLE TO EACH NOSTRIL 12/16/18 Mirabegron (Myrbetriq) 50 Mg Tab.er.24h, 1 TAB ORAL DAILY 10/21/18 Clopidogrel Bisulfate (Clopidogrel) 75 Mg Tablet, 1 TAB ORAL DAILY 10/21/18 Ferrous Sulfate* (Ferrous Sulfate*) 325 Mg Tabec, 325 MG PO DAILY, TAB 10/21/18 Cyanocobalamin* (Vitamin B-12* SL) 1,000 Mcg Tab.subl, 1000 MG PO DAILY 12/03/12 Ezetimibe-Simvastatin (Vytorin) 1 Tab Tablet, 1 TAB PO HS 12/03/12 Sertraline Hcl* (Sertraline Hcl*) 50 Mg Tablet, 50 TAB PO DAILY 12/03/12 Discontinued Reported Medications Omeprazole* (Omeprazole*) 20 Mg Capsule.dr, 20 MG PO BID for 30 Days 12/16/18 Spironolactone* (Aldactone*) 25 Mg Tablet, 25 MG PO DAILY, TAB 01/21/15 Carvedilol* (Carvedilol*) 12.5 Mg Tablet, 12.5 TAB PO BID 12/03/12 Follow-up Plan appt Primary 1wk. Regular Cardiology 1-2wks. GI Dr Barron 1wk. ask primary to call Medical Records [] for Summary. Primary Care Provider Not On Staff Doctor Time spent on discharge: > 30 minutes Pending Labs Laboratory Tests Test 12/18/18 05:39 12/18/18 05:40 Sodium Level 144 mmol/L (135-144) Potassium Level 3.8 mmol/L (3.5-5.1) Chloride Level 113 mmol/L (97-110) Carbon Dioxide Level 21 mmol/L (21-31) Anion Gap 10 (5-13) Blood Urea Nitrogen 14 mg/dl (7-20) Creatinine 0.96 mg/dl (0.44-1.00) Est Glomerular Filtrat mL/min (>60) Rate mL/min Glucose Level 102 mg/dl (70-220) Calcium Level 8.9 mg/dl (8.4-10.2) Phosphorus Level 3.9 mg/dl (2.5-4.9) Magnesium Level 2.0 mg/dl (1.7-2.5) Total Bilirubin 0.5 mg/dl (0.2-1.3) Direct Bilirubin 0.00 mg/dl (0.00-0.20) Indirect Bilirubin 0.5 mg/dl (0-1.1) Aspartate Amino 25 IU/L (15-46) Transf (AST/SGOT) Alanine 15 IU/L (13-69) Aminotransferase (ALT/SGPT) Alkaline Phosphatase 86 IU/L (42-121) Total Protein 7.2 g/dl (6.1-8.1) Albumin 3.6 g/dl (3.3-4.9) Globulin 3.60 g/dl (1.3-3.2) Albumin/Globulin Ratio 1.00 White Blood Count 10.5 10^3/ul (4.8-10.8) Red Blood Count 3.73 10^6/ul (4.20-5.40) Hemoglobin 10.0 g/dl (12.0-16.0) Hematocrit 31.4 % (37.0-47.0) Mean Corpuscular Volume 84.2 fl (82.0-101.0) Mean Corpuscular Hemoglobin 26.8 pg (29.0-33.0) Mean Corpuscular 31.8 g/dl (32.0-37.0) Hemoglobin Concent Red Cell Distribution Width 15.5 % (11.5-14.5) Platelet Count 310 10^3/UL (140-415) Mean Platelet Volume 9.7 fl (7.4-10.4) Immature Granulocytes % 0.400 % (0.001-0.429) Neutrophils % 61.0 % (39.0-77.0) Lymphocytes % 25.2 % (15.0-51.0) Monocytes % 7.6 % (0.0-11.0) Eosinophils % 4.9 % (0.0-7.0) Basophils % 0.9 % (0.0-2.0) Nucleated Red Blood Cells % 0.0 /100WBC (0.0-0.0) Immature Granulocytes # 0.040 10^3/ul (0.0-0.031) Neutrophils # 6.4 10^3/ul (1.6-7.5) Lymphocytes # 2.6 10^3/ul (0.8-2.9) Monocytes # 0.8 10^3/ul (0.3-0.9) Eosinophils # 0.5 10^3/ul (0.0-0.5) Basophils # 0.1 10^3/ul (0.0-0.1) Nucleated Red Blood Cells # 0.0 10^3/ul (0.0-0.0) MARILEE LAWSON MD Dec 18, 2018 19:17
== END 2018-12-18 18:24 | disposition home or self-care (01) | DRG 379 ==
LOC: E/R 21:16 → PP2 12-16 00:23
PROVIDERS: ADMIT Internal Medicine; ATTEND Internal Medicine
PROC: 30233N1 Transfusion of Nonautologous Red Blood Cells into Peripheral Vein, Percutaneous Approach (ICD-10-PCS; 2018-12-16)
PROC: 0W3P8ZZ Control Bleeding in Gastrointestinal Tract, Via Natural or Artificial Opening Endoscopic (ICD-10-PCS; principal; 2018-12-17 09:00)
PROC: 0DJD8ZZ Inspection of Lower Intestinal Tract, Via Natural or Artificial Opening Endoscopic (ICD-10-PCS; 2018-12-17 09:00)
DX: K31.811 Angiodysplasia of stomach and duodenum with bleeding (principal); I25.10 Atherosclerotic heart disease of native coronary artery without angina pectoris; D64.9 Anemia, unspecified; K64.8 Other hemorrhoids; K64.4 Residual hemorrhoidal skin tags; K57.30 Diverticulosis of large intestine without perforation or abscess without bleeding; K21.0 Gastro-esophageal reflux disease with esophagitis; I10 Essential (primary) hypertension; N28.9 Disorder of kidney and ureter, unspecified; E11.9 Type 2 diabetes mellitus without complications; K59.00 Constipation, unspecified; E78.5 Hyperlipidemia, unspecified; Z86.73 Personal history of transient ischemic attack (TIA), and cerebral infarction without residual deficits; Z95.1 Presence of aortocoronary bypass graft; Z95.5 Presence of coronary angioplasty implant and graft
CPT/HCPCS: 36415; 36430; 70450; 71045; 80048; 80053; 81001; 82270; 83735; 84100; 84443; 84480; 84484; 85025; 85610; 85730; 86850; 86900; 86901; 86920; 93005; 96374; C9113; J0696; J2405; J2765; J7030; J7040; P9016